=== PATIENT | female | born 1940 | race Caucasian/White ===

== ENCOUNTER 2017-08-15 13:56 | Emergency (ER) | payer MEDICARE, MEDICAID ==
[~2017-08-15] VITALS: Ht 154.9 cm; Wt 61.2 kg
[~2017-08-15 13:56] MED LIST: BENADRYL25 MG ORAL; CAPSAICIN60 G1 TP; GLUCOPHAGE500 MG PO; IBUPROFEN600 MG ORAL; LANTUS SOL100 UNIT/1 SUBQ; PREDNISONE20 MG ORAL; TRAMADOL HCL50 MG ORAL
[2017-08-15 14:32] VITALS: BP 100/50
--- NOTE | 2017-08-15 14:33 | Emergency Room Report ---
History of Present Illness General Chief Complaint: Upper Respiratory Illness Source: Patient Present Illness HPI 77-year-old female with pmhx hypertension and diabetes p/w cough for 3 days. Pt states cough is productive, with clear non bloody sputum. Denies fever chills sob. Denies runny nose or myalgias. No sick contacts or recent travel. Patient does not smoke. Patient also states that she has left-sided chest pain, mostly only when she coughs, but sometimes at rest. Denies any palpitations. States that she had a stress test performed within the last 6 months which is negative PMD is Dr. Boogie Allergies: Coded Allergies: CODEINE (Verified Allergy, Mild, "MAKES PT CRAZY", 09/20/09) Patient History Past Medical History: see triage record Past Surgical History: none Pertinent Family History: none Reviewed Nursing Documentation: PMH: Agreed, PSxH: Agreed Nursing Documentation-PMH Hx Cardiac Problems: No Hx Hypertension: No Hx Pacemaker: No Hx Asthma: No Hx COPD: No Hx Diabetes: Yes Hx Cancer: No Hx Gastrointestinal Problems: No Hx Dialysis: No Hx Neurological Problems: No Hx Cerebrovascular Accident: No Hx Seizures: No Hx Weakness: Yes Review of Systems All Other Systems: negative except mentioned in HPI Physical Exam Vital Signs Date Time Temp Pulse Resp B/P (MAP) Pulse Ox O2 Delivery O2 Flow Rate FiO2 08/15/17 14:01 98.2 73 18 108/67 95 Room Air Sp02 EP Interpretation: reviewed, normal General Appearance: normal inspection, well appearing, no apparent distress, alert, GCS 15, non-toxic Head: normocephalic, atraumatic Eyes: bilateral eye normal inspection, bilateral eye PERRL, bilateral eye EOMI ENT: normal ENT inspection, normal pharynx, normal voice, moist mucus membranes Neck: normal inspection, full range of motion, supple Respiratory: normal inspection, lungs clear, normal breath sounds, no respiratory distress, no retraction, no wheezing, speaking full sentences, chest symmetrical Cardiovascular #1: normal inspection, regular rate, rhythm, no edema, normal capillary refill Cardiovascular #2: 2+ radial (R), 2+ radial (L) Gastrointestinal: normal inspection, non tender, soft, non-distended, no guarding Musculoskeletal: normal inspection, back normal, normal range of motion, non- tender Neurologic: normal inspection, alert, oriented x3, responsive, motor strength/ tone normal, sensory intact, normal gait, speech normal Psychiatric: normal inspection, judgement/insight normal, memory normal Skin: normal inspection, normal color, no rash, warm/dry, well hydrated, normal turgor Medical Decision Making Diagnostic Impression: Primary Impression: Upper respiratory infection ER Course 77-year-old female presenting with cough and chest pain for 3 days DDX: Likely viral URI versus pneumonia versus ACS Less likely ACS given benign history and physical Plan: IV access, obtain labs including troponin, EKG, CXR Anticipate discharge as patient appears very well, not having any chest pain at this time ER course: Labs: troponin negative Patient remained chest pain free during ED stay. Vital signs normal labs unremarkable no fever chills, eating/drinking in ED, CXR neg for infiltrate DC home Disposition: Patient will be discharged to home. Strict precautions discussed with patient on when to emergently return to the ED : this includes worsening/severe chest pain, palpitations, shortness of breath, syncopal episodes, fever or chills, which may indicate severe illness. Patient verbalized understanding. Patient instructed to follow up with their PMD within the next 2 days. Please note that this Emergency Department Report was dictated using [employer]arborman[employer] technologist technology software, occasionally this can lead to erroneous entry secondary to interpretation by the dictation equipment. EKG Diagnostic Results EP Interpretation: Yes Rate: normal Rhythm: NSR ST Segments: No acute changes ASA given to patient: yes Rhythm Strip EP Interpretation: Yes Rate: 70 Rhythm: NSR, no PVCs, no ectopy Chest X-ray CXR: Ordered: Yes 1 view Indication: Cough EP interpretation: Yes Interpretation: No consolidation, no effusion, no PTX, no acute cardiopulmonary disease Impression: No acute disease Electronically signed by Donita Montano MD Laboratory Tests Test 08/15/17 14:34 White Blood Count 5.0 K/UL (4.8-10.8) Red Blood Count 4.74 M/UL (4.20-5.40) Hemoglobin 12.6 G/DL (12.0-16.0) Hematocrit 39.6 % (37.0-47.0) Mean Corpuscular Volume 83 FL (80-99) Mean Corpuscular Hemoglobin 26.5 PG (27.0-31.0) L Mean Corpuscular Hemoglobin Concent 31.7 G/DL (32.0-36.0) L Red Cell Distribution Width 13.7 % (11.6-14.8) Platelet Count 249 K/UL (150-450) Mean Platelet Volume 7.0 FL (6.5-10.1) Neutrophils (%) (Auto) 55.6 % (45.0-75.0) Lymphocytes (%) (Auto) 24.2 % (20.0-45.0) Monocytes (%) (Auto) 18.9 % (1.0-10.0) H Eosinophils (%) (Auto) 0.5 % (0.0-3.0) Basophils (%) (Auto) 0.9 % (0.0-2.0) Sodium Level 137 MMOL/L (136-145) Potassium Level 3.9 MMOL/L (3.5-5.1) Chloride Level 101 MMOL/L (98-107) Carbon Dioxide Level 29 MMOL/L (21-32) Anion Gap 7 mmol/L (5-15) Blood Urea Nitrogen 12 mg/dL (7-18) Creatinine 1.0 MG/DL (0.55-1.30) Estimate Glomerular Filtration Rate mL/min (>60) Glucose Level 180 MG/DL (74-106) H Calcium Level 8.7 MG/DL (8.5-10.1) Total Bilirubin 0.3 MG/DL (0.2-1.0) Aspartate Amino Transferase (AST) 19 U/L (15-37) Alanine Aminotransferase (ALT) 16 U/L (12-78) Alkaline Phosphatase 66 U/L (46-116) Troponin I 0.000 ng/mL (0.000-0.056) Pro-B-Type Natriuretic Peptide 348 pg/mL (0-125) H Total Protein 9.1 G/DL (6.4-8.2) H Albumin 3.6 G/DL (3.4-5.0) Globulin 5.5 g/dL Albumin/Globulin Ratio 0.7 (1.0-2.7) L Last Vital Signs Date Time Temp Pulse Resp B/P (MAP) Pulse Ox O2 Delivery O2 Flow Rate FiO2 08/15/17 14:01 98.2 73 18 108/67 95 Room Air Disposition: HOME, SELF-CARE Condition: Improved Scripts Benzonatate (Tessalon Perle) 100 Mg Capsule 100 MG ORAL THREE TIMES A DAY for 7 Days, #21 PERLE 0 Refills Prov: Donita Montano M.D. 08/15/17 Donita Montano M.D. Aug 15, 2017 14:33
[2017-08-15 15:00] LABS: BASOPHILS % (AUTO) 0.9 % (0.0-2.0); EOSINOPHILS % (AUTO) 0.5 % (0.0-3.0); LYMPHOCYTES % (AUTO) 24.2 % (20.0-45.0); MEAN CORPUSCULAR HEMOGLOBIN 26.5 PG (27.0-31.0); MEAN CORPUSCULAR HGB CONC 31.7 G/DL (32.0-36.0); MEAN CORPUSCULAR VOLUME 83 FL (80-99); MONOCYTES % (AUTO) 18.9 % (1.0-10.0); NEUTROPHILS % (AUTO) 55.6 % (45.0-75.0); PLATELET COUNT 249 K/UL (150-450); RED BLOOD COUNT 4.74 M/UL (4.20-5.40); RED CELL DISTRIBUTION WIDTH 13.7 % (11.6-14.8)
[2017-08-15 15:09] LABS: ANION GAP 7 mmol/L (5-15); CALCIUM 8.7 MG/DL (8.5-10.1); CARBON DIOXIDE 29 MMOL/L (21-32); CHLORIDE 101 MMOL/L (98-107); POTASSIUM 3.9 MMOL/L (3.5-5.1); SODIUM 137 MMOL/L (136-145)
[2017-08-15 15:21] LABS: ALANINE AMINOTRANSFERASE 16 U/L (12-78); ALBUMIN/GLOBULIN RATIO 0.7 (1.0-2.7); ASPARTATE AMINO TRANSFERASE 19 U/L (15-37); TOTAL PROTEIN 9.1 G/DL (6.4-8.2)
[2017-08-15] MEDS ORDERED: TESSALON PERLE100 M2 ORAL (15:23)
[2017-08-15 15:45] VITALS: BP 110/54
--- NOTE | 2017-08-16 08:52 | Diagnostic Imaging Report ---
Indication: SOB Technique: One view of the chest Comparison: 10/30/2015 Findings: Nodular opacity is seen at the right lung base,, one visible in retrospect previously, and 2 or more more nodular opacities are seen in the left lung base, the more cephalad of which is also evident in retrospect on the prior exam. A calcified granuloma in the right upper lung is again demonstrated. No focal airspace consolidation. There are dense mitral annular calcifications again demonstrated. The heart size is normal. Pleural spaces are clear Impression: Bilateral basilar nodular opacities, to some extent evident in retrospect on prior exam of 2015. Note also that a prior abdomen CT in 2011 demonstrated basilar opacities as well. Findings may therefore represent is inflammatory changes. Nonetheless, question with clinical findings is recommended and further evaluation with chest CT if clinically indicated. No acute cardiopulmonary process Findings discussed by phone with Dr. Estrada in the emergency room at the time of interpretation
--- NOTE | 2017-08-16 18:37 | Cardiology Report ---
APPROVED REPORT EKG Measurement Heart [id number] Normal sinus rhythm Normal ECG
== END 2017-08-15 15:55 | disposition home or self-care (01) ==
LOC: EMR 15:25
DX: J06.9 Acute upper respiratory infection, unspecified (principal); E11.9 Type 2 diabetes mellitus without complications; Z88.6 Allergy status to analgesic agent
CPT/HCPCS: 36415; 71010; 80053; 83880; 84484; 85025; 93005; 99284

== ENCOUNTER 2017-09-29 09:02 | Emergency (ER) | payer MEDICARE, MEDICAID ==
[~2017-09-29] VITALS: Ht 152.4 cm; Wt 54.4 kg
[~2017-09-29 09:02] MED LIST changes: +TESSALON PERLE100 M2 ORAL
--- NOTE | 2017-09-29 10:52 | Diagnostic Imaging Report ---
Indication: Left shoulder pain Findings: 2 views of the left humerus and 3 view left shoulder were obtained. No acute fractures, malalignment, erosions or periostitis are identified. Bones are osteopenic. There is calcium in the rotator cuff.. Soft tissues are unremarkable. Marginal spurs are noted in the glenohumeral joint and AC joint. Shoulder alignment is normal. Impression: No acute injury. Rotator cuff tendinopathy
[2017-09-29 11:24] VITALS: BP 126/68
--- NOTE | 2017-09-29 12:24 | Emergency Room Report ---
History of Present Illness General Chief Complaint: Pain Source: Patient Present Illness HPI 77-year-old female presenting with left shoulder pain. States that in the middle of the night she went to the bathroom, had it on a door. Did not fall or hit her head. No complaints of shoulder pain worse with movement. Allergies: Coded Allergies: CODEINE (Verified Allergy, Mild, "MAKES PT CRAZY", 09/20/09) Patient History Past Medical History: see triage record Past Surgical History: none Pertinent Family History: none Reviewed Nursing Documentation: PMH: Agreed, PSxH: Agreed Nursing Documentation-PMH Hx Cardiac Problems: No Hx Hypertension: No Hx Pacemaker: No Hx Asthma: No - BRONCHITIS Hx COPD: No Hx Diabetes: Yes Hx Cancer: No Hx Gastrointestinal Problems: No Hx Dialysis: No Hx Neurological Problems: No Hx Cerebrovascular Accident: No Hx Seizures: No Hx Weakness: Yes Review of Systems All Other Systems: negative except mentioned in HPI Physical Exam Vital Signs Date Time Temp Pulse Resp B/P (MAP) Pulse Ox O2 Delivery O2 Flow Rate FiO2 09/29/17 09:05 97.5 75 20 99 Room Air 09/29/17 11:24 126/68 Sp02 EP Interpretation: reviewed, normal General Appearance: alert, GCS 15, non-toxic, mild distress Head: normocephalic, atraumatic Eyes: bilateral eye normal inspection, bilateral eye PERRL, bilateral eye EOMI ENT: normal ENT inspection, normal pharynx, normal voice, moist mucus membranes Neck: normal inspection, full range of motion, supple Respiratory: normal inspection, lungs clear, normal breath sounds, no respiratory distress, no retraction, no wheezing, speaking full sentences, chest symmetrical Cardiovascular #1: normal inspection, regular rate, rhythm, no edema, normal capillary refill Cardiovascular #2: 2+ radial (R), 2+ radial (L) Gastrointestinal: normal inspection, non tender, soft, non-distended, no guarding Musculoskeletal: other - L shoulder tendenress. limited ROM 2/2 to pain however can abduct to 90 degrees. no erythema. pulses intact Neurologic: normal inspection, alert, oriented x3, responsive, motor strength/ tone normal, sensory intact, normal gait, speech normal Psychiatric: normal inspection, judgement/insight normal, memory normal Skin: normal inspection, normal color, no rash, warm/dry, well hydrated, normal turgor Medical Decision Making Diagnostic Impression: Primary Impression: Contusion ER Course 77 female with left shoulder pain after she hit it last night DDX: Contusion versus fracture Plan: Pain control an x-ray ER course: Patient has remained stable during ED stay. Feeling better X-ray negative Disposition: Patient is to be discharged to home. Prescriptions given are Tylenol Patient is instructed to follow up with their primary care doctor within 5 days. Strict return precautions discussed with patient such as fever, chills, worsening/severe pain, chest pain, SOB, nausea, vomiting, which may indicate severe illness. Patient verbalizes understanding and agrees with plan. Please note that this Emergency Department Report was dictated using [employer] specialist technology software, occasionally this can lead to erroneous entry secondary to interpretation by the dictation equipment Xray: L Shoulder Complete Indication: Pain EP Interpretation: Yes Interpretation: No dislocation, no soft tissue swelling, no fractures Impression: No acute disease Electronically signed by Donita Montano MD Xray: L Humerus 3 view Indication: Pain EP Interpretation: Yes Interpretation: No dislocation, no soft tissue swelling, no fractures Impression: No acute disease Electronically signed by Donita Montano MD Last Vital Signs Date Time Temp Pulse Resp B/P (MAP) Pulse Ox O2 Delivery O2 Flow Rate FiO2 09/29/17 11:24 97.5 76 18 126/68 98 Room Air Disposition: HOME, SELF-CARE Condition: Improved Referrals: JACINTA PALACIOS (PCP) Patient Instructions: Contusion, [id number] Donita Montano M.D. Sep 29, 2017 12:24
== END 2017-09-29 11:24 | disposition home or self-care (01) ==
LOC: EMR 10:05
DX: S40.022A Contusion of left upper arm, initial encounter (principal); W22.8XXA Striking against or struck by other objects, initial encounter; Y92.002 Bathroom of unspecified non-institutional (private) residence as the place of occurrence of the external cause; M75.82 Other shoulder lesions, left shoulder; E11.9 Type 2 diabetes mellitus without complications; Z88.5 Allergy status to narcotic agent
CPT/HCPCS: 99284

== ENCOUNTER 2017-10-12 19:40 | Inpatient (IN) | payer MEDICARE, MEDICAID ==
[~2017-10-12] VITALS: Ht 154.9 cm; Wt 56.2 kg
[2017-10-12 19:50] VITALS: BP 108/60
--- NOTE | 2017-10-12 20:28 | Emergency Room Report ---
History of Present Illness General Chief Complaint: General Complaint Source: Patient Present Illness HPI Patient is a 77-year-old female sent in by Dr Boogie after increased left sided chest pain difficulty breathing. The patient had recent thorascopic procedure. The patient was noted to have increased difficulty breathing. Chest x-ray today showed approximately 70% pneumothorax. The patient was noted to have some difficulty with breathing. She had not been vomiting. She denied any fever. Allergies: Coded Allergies: CODEINE (Verified Allergy, Mild, "MAKES PT CRAZY", 09/20/09) Patient History Past Medical History: see triage record Reviewed Nursing Documentation: PMH: Agreed, PSxH: Agreed Nursing Documentation-PMH Hx Cardiac Problems: No Hx Hypertension: No Hx Pacemaker: No Hx Asthma: No - BRONCHITIS Hx COPD: No Hx Diabetes: Yes Hx Cancer: No Hx Gastrointestinal Problems: No Hx Dialysis: No Hx Neurological Problems: No Hx Cerebrovascular Accident: No Hx Seizures: No Hx Weakness: Yes Review of Systems All Other Systems: negative except mentioned in HPI Physical Exam Vital Signs Date Time Temp Pulse Resp B/P (MAP) Pulse Ox O2 Delivery O2 Flow Rate FiO2 10/12/17 19:47 98.1 1 6 108/60 89 Room Air Sp02 EP Interpretation: reviewed, normal General Appearance: normal inspection, well appearing, no apparent distress, alert, GCS 15 Head: atraumatic ENT: normal ENT inspection, hearing grossly normal, normal voice Neck: normal inspection, full range of motion, supple, no bony tend Respiratory: normal inspection, lungs clear, no respiratory distress, no retraction, no wheezing, decreased breath sounds Cardiovascular #1: regular rate, rhythm, no edema Gastrointestinal: normal inspection, normal bowel sounds, non tender, soft, no guarding, no hernia Genitourinary: no CVA tenderness Musculoskeletal: normal inspection, back normal, normal range of motion Neurologic: normal inspection, alert, responsive, speech normal Psychiatric: normal inspection, judgement/insight normal, mood/affect normal Skin: normal inspection, normal color, no rash Procedures Additional Procedure Procedure Narrative A left-sided Thoraseal catheter was placed after sterile prep and drape. Anesthesia with 10 mL of lidocaine 1%. The prep with Betadine. Introduced of the catheter into the mid clavicular line of the left thorax. I aspirated the catheter several times. The does not appear to have good function. Subsequently the patient had a syncopal episode. Patient was noted to have spontaneous return of circulation. The Thoraseal was subsequently replaced in the mid clavicular line. Post procedure x-ray showed improved pneumothorax. Repeat x-ray showed a near full expansion Medical Decision Making Diagnostic Impression: Primary Impression: Pneumothorax on left Additional Impression: Lesion of lung ER Course Patient presented for chest pain. Differential diagnosis included but was not limited to acute coronary syndrome, pulmonary embolism, pneumonia, aortic dissection, shingles, pneumothorax, aortic dissection, esophageal rupture, pericarditis. A chest x-ray one view interpreted by me showed approximately 70 % left pneumothorax. The patient was noted to be in no respiratory distress. She started on supplemental oxygen. The patient underwent Thoraseal placement with sterile technique. Patient was noted to have bradycardic arrest for about 10 second. The patient was noted to have return spontaneous circulation after patient was placed in supine position. vital signs charted by nursing are incorrect. The patient was noted to have vomited twice afterward. Appeared to been a vasovagal episode. The patient subsequently had improvement in her mental status and heart rate. This did not require medications. A post procedure chest x-ray showed improving pneumothorax. Dr. Alessandro Boogie was contacted for inpatient management due to primary care physician. Labs Test 10/12/17 20:30 White Blood Count 10.2 K/UL (4.8-10.8) Red Blood Count 4.23 M/UL (4.20-5.40) Hemoglobin 10.9 G/DL (12.0-16.0) Hematocrit 35.0 % (37.0-47.0) Mean Corpuscular Volume 83 FL (80-99) Mean Corpuscular Hemoglobin 25.9 PG (27.0-31.0) Mean Corpuscular Hemoglobin Concent 31.3 G/DL (32.0-36.0) Red Cell Distribution Width 13.1 % (11.6-14.8) Platelet Count 319 K/UL (150-450) Mean Platelet Volume 6.0 FL (6.5-10.1) Neutrophils (%) (Auto) 57.6 % (45.0-75.0) Lymphocytes (%) (Auto) 32.8 % (20.0-45.0) Monocytes (%) (Auto) 7.9 % (1.0-10.0) Eosinophils (%) (Auto) 1.1 % (0.0-3.0) Basophils (%) (Auto) 0.6 % (0.0-2.0) Prothrombin Time 10.2 SEC (9.30-11.50) Prothromb Time International Ratio 1.0 (0.9-1.1) Activated Partial Thromboplast Time 24 SEC (23-33) Sodium Level 139 MMOL/L (136-145) Potassium Level 4.0 MMOL/L (3.5-5.1) Chloride Level 105 MMOL/L (98-107) Carbon Dioxide Level 30 MMOL/L (21-32) Anion Gap 5 mmol/L (5-15) Blood Urea Nitrogen 18 mg/dL (7-18) Creatinine 0.8 MG/DL (0.55-1.30) Estimat Glomerular Filtration Rate mL/min (>60) Glucose Level 121 MG/DL (74-106) Calcium Level 8.8 MG/DL (8.5-10.1) Total Bilirubin 0.3 MG/DL (0.2-1.0) Aspartate Amino Transf (AST/SGOT) 15 U/L (15-37) Alanine Aminotransferase (ALT/SGPT) 14 U/L (12-78) Alkaline Phosphatase 61 U/L (46-116) Total Creatine Kinase 34 U/L (26-308) Creatine Kinase MB 0.6 NG/ML (0.0-3.6) Creatine Kinase MB Relative Index 1.7 Troponin I 0.000 ng/mL (0.000-0.056) Total Protein 8.1 G/DL (6.4-8.2) Albumin 3.4 G/DL (3.4-5.0) Globulin 4.7 g/dL Albumin/Globulin Ratio 0.7 (1.0-2.7) Last Vital Signs Date Time Temp Pulse Resp B/P (MAP) Pulse Ox O2 Delivery O2 Flow Rate FiO2 10/12/17 19:47 98.1 1 6 108/60 89 Room Air Status: improved Disposition: ADMITTED INPATIENT Condition: Tashi Finch Oct 12, 2017 20:28
[2017-10-12] MEDS ORDERED: Ketamine HCl 100mg syr IV ONE (20:30)
[2017-10-12] MEDS ORDERED: Lidocaine 1% Plain 30 ml INJ ONE (20:30)
[2017-10-12] MEDS ORDERED: Morphine Sulfate 4mg/ml Inj IVP ONE (20:30)
[2017-10-12 20:46] LABS: BASOPHILS % (AUTO) 0.6 % (0.0-2.0); EOSINOPHILS % (AUTO) 1.1 % (0.0-3.0); HEMOGLOBIN 10.9 G/DL (12.0-16.0); LYMPHOCYTES % (AUTO) 32.8 % (20.0-45.0); MEAN CORPUSCULAR VOLUME 83 FL (80-99); MONOCYTES % (AUTO) 7.9 % (1.0-10.0); NEUTROPHILS % (AUTO) 57.6 % (45.0-75.0); PLATELET COUNT 319 K/UL (150-450); RED BLOOD COUNT 4.23 M/UL (4.20-5.40); RED CELL DISTRIBUTION WIDTH 13.1 % (11.6-14.8); WHITE BLOOD COUNT 10.2 K/UL (4.8-10.8)
[2017-10-12 21:00] LABS: ANION GAP 5 mmol/L (5-15); BLOOD UREA NITROGEN 18 mg/dL (7-18); CALCIUM 8.8 MG/DL (8.5-10.1); CARBON DIOXIDE 30 MMOL/L (21-32); CHLORIDE 105 MMOL/L (98-107); CREATININE 0.8 MG/DL (0.55-1.30); SODIUM 139 MMOL/L (136-145)
[2017-10-12 21:13] LABS: ALANINE AMINOTRANSFERASE 14 U/L (12-78); ALBUMIN 3.4 G/DL (3.4-5.0); ALBUMIN/GLOBULIN RATIO 0.7 (1.0-2.7); ALKALINE PHOSPHATASE 61 U/L (46-116); ASPARTATE AMINO TRANSFERASE 15 U/L (15-37); BILIRUBIN,TOTAL 0.3 MG/DL (0.2-1.0); CKMB 0.6 NG/ML (0.0-3.6); CREATINE KINASE 34 U/L (26-308)
[2017-10-12 21:50] VITALS: BP 135/69
[2017-10-12] MEDS ORDERED: MAGOX 400400 MG ORAL (23:45)
[2017-10-12] MEDS ORDERED: ATORVASTATIN CA10 MG ORAL (23:45)
[2017-10-12] MEDS ORDERED: PLAVIX75 MG ORAL (23:45)
[2017-10-12] MEDS ORDERED: LEXAPRO5 MG ORAL (23:45)
[2017-10-12] MEDS ORDERED: METFORMIN HCL500 M1 ORAL (23:45)
[2017-10-12] MEDS ORDERED: ALPHA LIPOIC A300 MG PO (23:45)
[2017-10-12 23:50] VITALS: BP 144/61
[2017-10-13 00:30] VITALS: BP 161/71
[2017-10-13 04:00] VITALS: BP 146/63
[2017-10-13] MEDS ORDERED: Zolpidem 5mg tab ORAL PRN (05:15)
[2017-10-13] MEDS: metFORMIN 500mg tab ORAL SCH ×3 (06:36→17:36)
[2017-10-13 08:00] VITALS: BP 156/76
[2017-10-13] MEDS: Escitalopram Oxalate 5mg tab ORAL SCH (08:19)
[2017-10-13] MEDS: Heparin 5000 units/ml inj SUBQ SCH ×2 (08:21→20:22)
[2017-10-13] MEDS: Magnesium Oxide 400mg tab ORAL SCH ×2 (08:27→17:42)
--- NOTE | 2017-10-13 09:11 | Diagnostic Imaging Report ---
Indication: Shortness of breath Technique: One view of the chest Comparison: 08/15/2017 Findings: Interim development large left pneumothorax, with near complete collapse of the left lung. Patient is rotated to the right, some degree of mediastinal shift is difficult to assess, although no definite evidence of such. The right lung demonstrates mild interstitial prominence, no infiltrates. No effusions demonstrated Impression: Large left pneumothorax, near complete collapse of the left lung. Equivocal as regards evidence of tension. This was apparently recognized by the ED physician, as subsequent images document placement of a chest vent catheter Mild nonspecific right lung interstitial prominence
--- NOTE | 2017-10-13 09:20 | Diagnostic Imaging Report ---
Indication: Shortness of breath, pneumothorax, status post thoracic vent placement Technique: One view of the chest Comparison: 1 1/2 hours earlier Findings: Interim placement of a thoracic vent at the level of the left first intercostal space. There is evidence of partial reexpansion of the left lung, predominantly the lower lobe, but there is still residual pneumothorax of approximately 50%. Dense parenchymal opacities are seen within the incompletely expanded left lung. Allowing for differences in rotation mediastinum appears equivocally slightly less shifted and the interstitial markings in the right lung appears slightly less compressed Impression: Improved but not completely resolved left pneumothorax, still up to 50% residual, post left chest vent catheter placement Possibly improved mediastinal shift
--- NOTE | 2017-10-13 09:26 | Diagnostic Imaging Report ---
Indication: Shortness of breath, pneumothorax, status post thoracic vent placement Technique: One view of the chest Comparison: One hour earlier Findings: Interim complete reexpansion of the left lung. Tip of the thoracic vent catheter is at the left lung apex in good position. Marked interstitial septal thickening and bronchial wall thickening is seen in the left mid and lower lung. There may be some airspace opacification as well Chronic appearing interstitial prominence is again demonstrated in the right lung, with less striking central bronchial wall thickening. There are degenerative changes of the thoracic spine Impression: Interim complete re-expansion of the left lung. Thoracic chest vent catheter in good position Left lung interstitial and airspace opacities, acuity indeterminate. Less striking mild right lung interstitial prominence and central bronchial wall thickening, nonspecific
--- NOTE | 2017-10-13 10:42 | Diagnostic Imaging Report ---
Indication: Shortness of breath Technique: One view of the chest Comparison: 10/12/2017 Findings: Left-sided chest vent catheter remains. No pneumothorax. There is interim partial clearing of previously demonstrated left lung opacities. There is central bronchial wall thickening and perihilar interstitial prominence bilaterally. There is a persistent 1.5 cm diameter nodular opacity in the left midlung Impression: Improved aeration of the left lung, over one day. No evidence of residual pneumothorax Nonspecific left midlung nodular opacity. Recommend follow-up chest radiographs, consideration for CT should lesion fails to resolve
[2017-10-13] MEDS: Albuterol ud Inhalation HHN SCH ×4 (11:10→23:45)
[2017-10-13 12:00] VITALS: BP 112/57
[2017-10-13] MEDS: NovoLOG Insulin Flexpen SUBQ SCH ×3 (12:03→20:42)
--- NOTE | 2017-10-13 13:46 | Consultation ---
History of Present Illness General Date patient seen: Oct 13, 2017 Chief Complaint: General Complaint Reason for Consultation: Pneumothorax Present Illness HPI 77 year old female presented to ED c/o chest pain and was found to have a near complete collapse of left lung/pneumothorax. Patient recently noted to have lung nodules and as part of work up had scheduled bronchoscopy yesterday at [facility]. Post procedure she went home but developed mild chest pain that worsened through the night. She called Dr. Boogie who advised her to come to ED where she had a chest x-ray that identified large left pneumothorax. A valve catheter was placed successfully. Currently states she feels better and is comfortable. Surgery called to evaluate for pneumothorax and tube thoracostomy management. Currently valve functional and positioned well. CXR reviewed since placement and improved. states that she only has some mild left shoulder discomfort now. no n/v/f/c. no SOB. CP resolved. Allergies: Coded Allergies: CODEINE (Verified Allergy, Mild, "MAKES PT CRAZY", 09/20/09) Medication History Scheduled Alpha Lipoic Acid (Alpha Lipoic Acid), 600 MG PO DAILY, (Reported) Atorvastatin Calcium* (Lipitor*), 10 MG ORAL BEDTIME, (Reported) Benzonatate (Tessalon Perle), 100 MG ORAL THREE TIMES A DAY Capsaicin (Capsaicin), 60 GM TP TID Clopidogrel Bisulfate* (Plavix*), 75 MG ORAL DAILY, (Reported) Escitalopram Oxalate (Lexapro), 5 MG ORAL DAILY, (Reported) Ibuprofen* (Motrin*), 600 MG ORAL THREE TIMES A DAY Insulin Glargine (Lantus), 20 UNITS SUBQ QHS, (Reported) Magnesium Oxide (Magox 400), 400 MG ORAL BID, (Reported) Metformin Hcl* (Glucophage*), 500 MG PO DAILY, (Reported) Prednisone* (Prednisone*), 40 MG ORAL DAILY Scheduled PRN Diphenhydramine Hcl* (Benadryl*), 25 MG ORAL Q6H PRN for Itching Ibuprofen* (Motrin*), 600 MG ORAL Q12HR PRN for For Pain Tramadol Hcl* (Ultram*), 50 MG ORAL Q6H PRN for For Pain Miscellaneous Medications Metformin Hcl* (Metformin Hcl*), 500 MG ORAL, (Reported) Patient History History Provided By: Patient, Medical Record, PMD Healthcare decision maker Resuscitation status Advanced Directive on File Past Medical/Surgical History Past Medical/Surgical History: (1) Muscle spasm (2) Allergic reaction (3) Itch of eye, right (4) Chronic pain (5) Degenerative arthritis of lumbar spine (6) Head injury (7) Left shoulder strain (8) Contusion (9) Lesion of lung (10) Pneumothorax on left Review of Systems Constitutional: Denies: no symptoms, see HPI, chills, sweats, fever, malaise, weakness, other Eye: Denies: no symptoms, see HPI, eye pain, blurred vision, tearing, double vision, nose pain, nose congestion, acuity changes, discharge, other ENT: Denies: no symptoms, see HPI, ear pain, ear discharge, nose pain, nose congestion, throat pain, throat swelling, mouth pain, hearing loss, nasal discharge, other Respiratory: Denies: no symptoms, see HPI, cough, orthopnea, shortness of breath, stridor, wheezing, GÓMEZ, sputum, other Cardiovascular: Reports: chest pain Gastrointestinal: Denies: no symptoms, see HPI, abdominal pain, constipation, diarrhea, nausea, vomiting, melena, hematemesis, other Genitourinary: Denies: no symptoms, see HPI, discharge, dysuria, frequency, hematuria, pain, retention, incontinence, urgency, vag bleed/dc, other Musculoskeletal: Denies: no symptoms, see HPI, back pain, gout, joint pain, joint swelling, muscle pain, muscle stiffness, other Skin: Denies: no symptoms, see HPI, rash, change in color, change in hair/nails , dryness, lesions, other Psychiatric: Denies: no symptoms, see HPI, prior hx, anxiety, depressed feelings, emotional problems, SI, HI, hallucinations, other Neurological: Denies: no symptoms, see HPI, headache, numbness, paresthesia, seizure, tingling, tremors, focal weakness, syncope, dizziness, other Endocrine: Denies: no symptoms, see HPI, excessive sweating, flushing, intolerance to temperature, increased thirst, increased urine, unexplained weight loss, other Hematologic/Lymphatic: Denies: no symptoms, see HPI, anemia, blood clots, easy bleeding, easy bruising, swollen glands, diathesis, other Physical Exam General Appearance: WD/WN, no apparent distress, alert Lines, tubes and drains: peripheral HEENT: normocephalic, atraumatic, mucous membranes moist, PERRL Neck: supple, normal inspection Respiratory/Chest: lungs clear, normal breath sounds, no respiratory distress, no accessory muscle use, chest tube Cardiovascular/Chest: normal peripheral pulses, normal rate, regular rhythm Abdomen: normal bowel sounds, non tender, soft, no organomegaly, no mass Extremities: normal range of motion, non-tender, normal inspection Skin Exam: normal pigmentation, warm/dry Neurologic: alert, oriented x 3, responsive Last 24 Hour Vital Signs Date Time Temp Pulse Resp B/P (MAP) Pulse Ox O2 Delivery O2 Flow Rate FiO2 10/13/17 12:00 97.7 70 20 112/57 98 Nasal Cannula 2.0 10/13/17 12:00 68 10/13/17 11:20 66 20 100 Nasal Cannula 2.0 28 10/13/17 11:20 28 10/13/17 11:11 62 22 100 Nasal Cannula 2.0 28 10/13/17 10:23 68 22 Nasal Cannula 2.0 28 10/13/17 08:00 97.0 59 20 156/76 100 10/13/17 08:00 57 10/13/17 04:00 61 10/13/17 04:00 97.6 61 16 146/63 100 10/13/17 00:30 97.6 62 14 161/71 98 10/13/17 00:25 98.0 59 20 140/69 93 Room Air 10/13/17 00:00 64 10/12/17 23:50 98.0 57 18 144/61 92 Room Air 10/12/17 21:50 98.1 59 20 135/69 93 Room Air 10/12/17 21:08 98.0 10/12/17 19:50 98.1 55 20 108/60 95 Room Air 10/12/17 19:47 98.1 61 16 108/60 89 Room Air Intake and Output 10/12/17 10/13/17 19:00 07:00 Intake Total 100 ml Balance 100 ml Intake Oral 100 ml # Voids 2 Laboratory Tests Test 10/12/17 20:30 White Blood Count 10.2 K/UL (4.8-10.8) Red Blood Count 4.23 M/UL (4.20-5.40) Hemoglobin 10.9 G/DL (12.0-16.0) L Hematocrit 35.0 % (37.0-47.0) L Mean Corpuscular Volume 83 FL (80-99) Mean Corpuscular Hemoglobin 25.9 PG (27.0-31.0) L Mean Corpuscular Hemoglobin Concent 31.3 G/DL (32.0-36.0) L Red Cell Distribution Width 13.1 % (11.6-14.8) Platelet Count 319 K/UL (150-450) Mean Platelet Volume 6.0 FL (6.5-10.1) L Neutrophils (%) (Auto) 57.6 % (45.0-75.0) Lymphocytes (%) (Auto) 32.8 % (20.0-45.0) Monocytes (%) (Auto) 7.9 % (1.0-10.0) Eosinophils (%) (Auto) 1.1 % (0.0-3.0) Basophils (%) (Auto) 0.6 % (0.0-2.0) Prothrombin Time 10.2 SEC (9.30-11.50) Prothromb Time International Ratio 1.0 (0.9-1.1) Activated Partial Thromboplast Time 24 SEC (23-33) Sodium Level 139 MMOL/L (136-145) Potassium Level 4.0 MMOL/L (3.5-5.1) Chloride Level 105 MMOL/L (98-107) Carbon Dioxide Level 30 MMOL/L (21-32) Anion Gap 5 mmol/L (5-15) Blood Urea Nitrogen 18 mg/dL (7-18) Creatinine 0.8 MG/DL (0.55-1.30) Estimat Glomerular Filtration Rate mL/min (>60) Glucose Level 121 MG/DL (74-106) H Calcium Level 8.8 MG/DL (8.5-10.1) Total Bilirubin 0.3 MG/DL (0.2-1.0) Aspartate Amino Transf (AST/SGOT) 15 U/L (15-37) Alanine Aminotransferase (ALT/SGPT) 14 U/L (12-78) Alkaline Phosphatase 61 U/L (46-116) Total Creatine Kinase 34 U/L (26-308) Creatine Kinase MB 0.6 NG/ML (0.0-3.6) Creatine Kinase MB Relative Index 1.7 Troponin I 0.000 ng/mL (0.000-0.056) Total Protein 8.1 G/DL (6.4-8.2) Albumin 3.4 G/DL (3.4-5.0) Globulin 4.7 g/dL Albumin/Globulin Ratio 0.7 (1.0-2.7) L Height (Feet): 5 Height (Inches): 1.00 Weight (Pounds): 124 Medications Current Medications Medications (Trade) Dose Ordered Sig/Mariela Route PRN Reason Start Time Stop Time Status Last Admin Dose Admin Acetaminophen (Tylenol) 650 mg Q4H PRN ORAL Mild Pain/Temp > 100.5 10/13/17 05:15 11/12/17 05:14 Al Hydroxide/Mg Hydroxide (Mylanta) 30 ml Q4H PRN ORAL Abdominal cramps 10/13/17 05:15 11/12/17 05:14 Albuterol Sulfate (Proventil) 2.5 mg Q4HRT HHN 10/13/17 11:00 10/18/17 10:59 10/13/17 11:10 Atorvastatin Calcium (Lipitor) 10 mg BEDTIME ORAL 10/13/17 21:00 11/12/17 20:59 Clopidogrel Bisulfate (Plavix) 75 mg DAILY ORAL 10/13/17 09:00 11/12/17 08:59 10/13/17 08:19 Dextrose (Dextrose 50%) STAT PRN IV Hypoglycemia 10/13/17 10:15 11/12/17 10:14 Escitalopram Oxalate (Lexapro) 5 mg DAILY ORAL 10/13/17 09:00 11/12/17 08:59 10/13/17 08:19 Heparin Sodium (Porcine) (Heparin 5000 units/ml) 5,000 units Q12HR SUBQ 10/13/17 09:00 11/12/17 08:59 10/13/17 08:21 Insulin Aspart (NovoLOG) BEFORE MEALS AND HS SUBQ 10/13/17 11:30 11/12/17 11:29 10/13/17 12:03 Magnesium Oxide (Mag-Ox 400mg) 400 mg BID ORAL 10/13/17 09:00 11/12/17 08:59 10/13/17 08:27 Metformin HCl (Glucophage) 500 mg TIAC ORAL 10/13/17 06:30 11/12/17 06:29 10/13/17 12:01 Non-Formulary Medication (Non-Formulary Med) 1 ea DAILY ORAL 10/13/17 09:00 11/12/17 08:59 UNV Non-Formulary Medication (Non-Formulary Med) 25 ea DAILY ORAL 10/13/17 09:00 11/12/17 08:59 UNV Ondansetron HCl (Zofran) 4 mg Q6H PRN IVP Nausea & Vomiting 10/13/17 09:15 11/12/17 09:14 Pantoprazole (Protonix) 40 mg DAILY ORAL 10/13/17 09:00 11/12/17 08:59 10/13/17 08:19 Zolpidem Tartrate (Ambien) 5 mg HSPRN PRN ORAL Insomnia 10/13/17 05:15 10/20/17 05:14 Assessment/Plan Problem List: (1) Pneumothorax on left Assessment & Plan: 77F with iatrogenic left ptx after bronchoscopy yesterday. s/p left tube thoracostomy with valve vent. cxr improved and symptoms resolved. no leak noted. -will need to leave tube in for 2-3 days to ensure resolution of ptx and that area of leak healed. -daily cxr -will monitor and manage tube. -okay for diet -Rx as written. -ambulate and oob thank you for this consult. will follow with recs. ICD Codes: J93.9 - Pneumothorax, unspecified SNOMED: 368471314 Status: stable Hossein Fleming Oct 13, 2017 13:46
[2017-10-13 16:00] VITALS: BP 142/66
--- NOTE | 2017-10-13 18:55 | Cardiology Report ---
APPROVED REPORT EKG Measurement Heart [id number] Normal sinus rhythm Normal ECG
[2017-10-13 20:00] VITALS: BP 121/53
[2017-10-14] VITALS: BP 99/50
[2017-10-14] MEDS: Albuterol ud Inhalation HHN SCH ×6 (03:01→23:00)
[2017-10-14 04:00] VITALS: BP 125/69
[2017-10-14] MEDS: NovoLOG Insulin Flexpen SUBQ SCH ×4 (06:30→21:00)
[2017-10-14] MEDS: metFORMIN 500mg tab ORAL SCH ×3 (07:38→16:42)
--- NOTE | 2017-10-14 07:53 | Pulmonology Progress Note ---
Assessment/Plan Assessment/Plan pneumothorax s/p bronchoscopy pulmonary nodule Asthma PLAN theravent dc per general surgery continue same oxygen maintain home meds impression, plan, and exam edited and reviewed in detail care discussed with RN Subjective Allergies: Coded Allergies: CODEINE (Verified Allergy, Mild, "MAKES PT CRAZY", 09/20/09) Subjective stable on oxygen minimal pain Objective Last 24 Hour Vital Signs Date Time Temp Pulse Resp B/P (MAP) Pulse Ox O2 Delivery O2 Flow Rate FiO2 10/14/17 04:00 97.5 79 22 125/69 98 Nasal Cannula 2.0 10/14/17 04:00 69 10/14/17 03:10 65 16 98 Room Air 21 10/14/17 03:01 67 18 94 Room Air 21 10/14/17 00:00 72 10/14/17 00:00 98.6 73 18 99/50 95 Room Air 10/13/17 23:52 65 16 99 Room Air 21 10/13/17 23:44 66 18 92 Room Air 21 10/13/17 20:00 65 10/13/17 20:00 99.2 66 18 121/53 97 Room Air 10/13/17 19:42 64 16 99 Room Air 21 10/13/17 19:33 65 18 94 Room Air 21 10/13/17 16:00 63 10/13/17 16:00 97.9 63 18 142/66 98 Room Air 10/13/17 14:46 Nasal Cannula 2.0 28 10/13/17 14:46 Nasal Cannula 2.0 28 10/13/17 12:00 97.7 70 20 112/57 98 Nasal Cannula 2.0 10/13/17 12:00 68 10/13/17 11:20 66 20 100 Nasal Cannula 2.0 28 10/13/17 11:20 28 10/13/17 11:11 62 22 100 Nasal Cannula 2.0 28 10/13/17 10:23 68 22 Nasal Cannula 2.0 28 10/13/17 08:00 97.0 59 20 156/76 100 10/13/17 08:00 57 Intake and Output 10/13/17 10/14/17 19:00 07:00 Intake Total 540 ml 100 ml Balance 540 ml 100 ml Intake Oral 540 ml 100 ml # Voids 4 Objective WDWN NAD clear breath sounds bilaterally without rhonchi or wheeze theravent [id number] without MRG NABS nontender no HSM no CCE nonfocal Current Medications Medications (Trade) Dose Ordered Sig/Mariela Route PRN Reason Start Time Stop Time Status Last Admin Dose Admin Acetaminophen (Tylenol) 650 mg Q4H PRN ORAL Mild Pain/Temp > 100.5 10/13/17 05:15 11/12/17 05:14 10/13/17 22:13 Al Hydroxide/Mg Hydroxide (Mylanta) 30 ml Q4H PRN ORAL Abdominal cramps 10/13/17 05:15 11/12/17 05:14 Albuterol Sulfate (Proventil) 2.5 mg Q4HRT HHN 10/13/17 11:00 10/18/17 10:59 10/14/17 03:01 Atorvastatin Calcium (Lipitor) 10 mg BEDTIME ORAL 10/13/17 21:00 11/12/17 20:59 10/13/17 20:20 Clopidogrel Bisulfate (Plavix) 75 mg DAILY ORAL 10/13/17 09:00 11/12/17 08:59 10/13/17 08:19 Dextrose (Dextrose 50%) STAT PRN IV Hypoglycemia 10/13/17 10:15 11/12/17 10:14 Escitalopram Oxalate (Lexapro) 5 mg DAILY ORAL 10/13/17 09:00 11/12/17 08:59 10/13/17 08:19 Heparin Sodium (Porcine) (Heparin 5000 units/ml) 5,000 units Q12HR SUBQ 10/13/17 09:00 11/12/17 08:59 10/13/17 20:22 Insulin Aspart (NovoLOG) BEFORE MEALS AND HS SUBQ 10/13/17 11:30 11/12/17 11:29 10/13/17 20:42 Magnesium Oxide (Mag-Ox 400mg) 400 mg BID ORAL 10/13/17 09:00 11/12/17 08:59 10/13/17 17:42 Metformin HCl (Glucophage) 500 mg TIAC ORAL 10/13/17 06:30 11/12/17 06:29 10/14/17 07:38 Non-Formulary Medication (Non-Formulary Med) 1 ea DAILY ORAL 10/13/17 09:00 11/12/17 08:59 UNV Non-Formulary Medication (Non-Formulary Med) 25 ea DAILY ORAL 10/13/17 09:00 11/12/17 08:59 UNV Ondansetron HCl (Zofran) 4 mg Q6H PRN IVP Nausea & Vomiting 10/13/17 09:15 11/12/17 09:14 10/13/17 20:45 Pantoprazole (Protonix) 40 mg DAILY ORAL 10/13/17 09:00 11/12/17 08:59 10/13/17 08:19 Zolpidem Tartrate (Ambien) 5 mg HSPRN PRN ORAL Insomnia 10/13/17 05:15 10/20/17 05:14 JACINTA PALACIOS Oct 14, 2017 07:53
[2017-10-14 08:00] VITALS: BP 149/62
[2017-10-14 08:43] LABS: BASOPHILS % (AUTO) 0.4 % (0.0-2.0); EOSINOPHILS % (AUTO) 0.7 % (0.0-3.0); HEMATOCRIT 36.6 % (37.0-47.0); HEMOGLOBIN 11.6 G/DL (12.0-16.0); LYMPHOCYTES % (AUTO) 29.7 % (20.0-45.0); MEAN CORPUSCULAR VOLUME 83 FL (80-99); MONOCYTES % (AUTO) 8.1 % (1.0-10.0); NEUTROPHILS % (AUTO) 61.1 % (45.0-75.0); PLATELET COUNT 271 K/UL (150-450); RED BLOOD COUNT 4.43 M/UL (4.20-5.40); WHITE BLOOD COUNT 8.5 K/UL (4.8-10.8)
[2017-10-14] MEDS: Escitalopram Oxalate 5mg tab ORAL SCH (08:53)
[2017-10-14] MEDS: Magnesium Oxide 400mg tab ORAL SCH ×2 (08:54→17:38)
[2017-10-14 08:55] LABS: ALANINE AMINOTRANSFERASE 12 U/L (12-78); ALBUMIN 3.1 G/DL (3.4-5.0); ALBUMIN/GLOBULIN RATIO 0.7 (1.0-2.7); ALKALINE PHOSPHATASE 53 U/L (46-116); ANION GAP 7 mmol/L (5-15); ASPARTATE AMINO TRANSFERASE 14 U/L (15-37); BILIRUBIN,TOTAL 0.3 MG/DL (0.2-1.0); BLOOD UREA NITROGEN 16 mg/dL (7-18); CARBON DIOXIDE 30 MMOL/L (21-32); CHLORIDE 102 MMOL/L (98-107); CREATININE 0.8 MG/DL (0.55-1.30); POTASSIUM 3.8 MMOL/L (3.5-5.1); SODIUM 139 MMOL/L (136-145)
[2017-10-14] MEDS: Heparin 5000 units/ml inj SUBQ SCH ×2 (08:59→20:32)
--- NOTE | 2017-10-14 09:16 | General Progress Note ---
Assessment/Plan Problem List: (1) Lesion of lung ICD Codes: R91.1 - Solitary pulmonary nodule SNOMED: 067263992 (2) Chronic pain ICD Codes: G89.29 - Other chronic pain SNOMED: 06933739 (3) Degenerative arthritis of lumbar spine ICD Codes: M47.816 - Spondylosis without myelopathy or radiculopathy, lumbar region SNOMED: 182876935 (4) Left shoulder strain ICD Codes: S46.912A - Strain of unspecified muscle, fascia and tendon at shoulder and upper arm level, left arm, initial encounter SNOMED: 053246991 (5) Pneumothorax on left ICD Codes: J93.9 - Pneumothorax, unspecified SNOMED: 837734155 Status: stable, progressing Assessment/Plan CT per pulm pain rx o2 prn mobilize Subjective ROS Limited/Unobtainable: No Constitutional: Reports: weakness HEENT: Reports: no symptoms Cardiovascular: Reports: chest pain Respiratory: Reports: no symptoms Gastrointestinal/Abdominal: Reports: no symptoms Genitourinary: Reports: no symptoms Neurologic/Psychiatric: Reports: no symptoms Endocrine: Reports: no symptoms Hematologic/Lymphatic: Reports: no symptoms Allergies: Coded Allergies: CODEINE (Verified Allergy, Mild, "MAKES PT CRAZY", 09/20/09) All Systems: reviewed and negative except above Subjective minimal pain at CT site. no sob. walking to the bathroom. Objective Last 24 Hour Vital Signs Date Time Temp Pulse Resp B/P (MAP) Pulse Ox O2 Delivery O2 Flow Rate FiO2 10/14/17 07:58 86 20 98 Room Air 21 10/14/17 07:53 84 20 97 Room Air 10/14/17 04:00 97.5 79 22 125/69 98 Nasal Cannula 2.0 10/14/17 04:00 69 10/14/17 03:10 65 16 98 Room Air 21 10/14/17 03:01 67 18 94 Room Air 10/14/17 00:00 72 10/14/17 00:00 98.6 73 18 99/50 95 Room Air 10/13/17 23:52 65 16 99 Room Air 21 10/13/17 23:44 66 18 92 Room Air 21 10/13/17 20:00 65 10/13/17 20:00 99.2 66 18 121/53 97 Room Air 10/13/17 19:42 64 16 99 Room Air 21 10/13/17 19:33 65 18 94 Room Air 21 10/13/17 16:00 63 10/13/17 16:00 97.9 63 18 142/66 98 Room Air 10/13/17 14:46 Nasal Cannula 2.0 28 10/13/17 14:46 Nasal Cannula 2.0 28 10/13/17 12:00 97.7 70 20 112/57 98 Nasal Cannula 2.0 10/13/17 12:00 68 10/13/17 11:20 66 20 100 Nasal Cannula 2.0 28 10/13/17 11:20 28 10/13/17 11:11 62 22 100 Nasal Cannula 2.0 28 10/13/17 10:23 68 22 Nasal Cannula 2.0 28 Intake and Output 10/13/17 10/14/17 19:00 07:00 Intake Total 540 ml 100 ml Balance 540 ml 100 ml Intake Oral 540 ml 100 ml # Voids 4 Laboratory Tests 10/14/17 06:40: White Blood Count 8.5, Red Blood Count 4.43, Hemoglobin 11.6L, Hematocrit 36.6L , Mean Corpuscular Volume 83, Mean Corpuscular Hemoglobin 26.2L, Mean Corpuscular Hemoglobin Concent 31.6L, Red Cell Distribution Width 13.0, Platelet Count 271, Mean Platelet Volume 7.1, Neutrophils (%) (Auto) 61.1, Lymphocytes (%) (Auto) 29.7, Monocytes (%) (Auto) 8.1, Eosinophils (%) (Auto) 0.7, Basophils (%) (Auto) 0.4, Sodium Level 139, Potassium Level 3.8, Chloride Level 102, Carbon Dioxide Level 30, Anion Gap 7, Blood Urea Nitrogen 16, Creatinine 0.8, Estimat Glomerular Filtration Rate , Glucose Level 106, Calcium Level 9.0, Total Bilirubin 0.3, Aspartate Amino Transf (AST/SGOT) 14L, Alanine Aminotransferase (ALT/SGPT) 12, Alkaline Phosphatase 53, Total Protein 7.8, Albumin 3.1L, Globulin 4.7, Albumin/Globulin Ratio 0.7L Height (Feet): 5 Height (Inches): 1.00 Weight (Pounds): 124 General Appearance: WD/WN, alert Neck: supple Cardiovascular: normal rate Respiratory/Chest: chest wall non-tender, lungs clear, normal breath sounds Abdomen: normal bowel sounds, non tender, soft, no organomegaly Edema: no edema noted Arm (L), no edema noted Arm (R), no edema noted Leg (L), no edema noted Leg (R), no edema noted Pedal (L), no edema noted Pedal (R), no edema noted Generalized Neurologic: radiation technician II-XII grossly normal, no motor/sensory deficits, oriented x 3 , responsive JESSICA COATS Oct 14, 2017 09:16
--- NOTE | 2017-10-14 11:01 | Diagnostic Imaging Report ---
Indication: Reason For Exam: COUGH Technique: XRAY Chest 1v Comparison: 10/13/2017 Findings: Left-sided smallbore chest tube/thoracic vent remains in place. There is no definite pneumothorax. Nodular density in the left midlung less apparent compared to prior exam.. Likely calcified granuloma in the right upper lung. No new focal consolidation. No pleural effusion. Impression: Left small bore chest tube/thoracic vent remains in place. No definite pneumothorax. Nodular density in the left midlung less apparent compared to the prior exam. Follow-up exam recommended.
[2017-10-14 12:00] VITALS: BP 140/62
--- NOTE | 2017-10-14 15:30 | History and Physical Report ---
DATE OF ADMISSION: 10/12/2017 CHIEF COMPLAINT: Pneumothorax. HISTORY OF PRESENT ILLNESS: The patient is a pleasant 77-year-old female. 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 She was diagnosed with a pneumothorax and was sent to the emergency room. On evaluation there, a catheter was placed. The patient apparently had a vasovagal episode during the procedure and had a bradycardic episode for 10 seconds. She is now improved, although she complains of some nausea. She has no chest pain or shortness of breath. PAST MEDICAL HISTORY: As above. PAST SURGICAL HISTORY: Includes back surgery. CURRENT MEDICATIONS: Reconciled and reviewed. ALLERGIES: None. FAMILY HISTORY: None. SOCIAL HISTORY: Negative for tobacco, ethanol, or drugs. REVIEW OF SYSTEMS: GENERAL: No fever or chills. HEENT: No headaches or visual changes. CARDIOPULMONARY: No chest pain. Positive shortness of breath. No cough. GASTROINTESTINAL: No nausea or vomiting. GENITOURINARY: No urgency or frequency. MUSCULOSKELETAL: No joint pain or swelling. NEUROLOGIC: No history of seizures. PHYSICAL EXAMINATION: VITAL SIGNS: Temperature 98, pulse 61, respirations 16, and blood pressure 146/63. The patient is saturating 100% on two liters nasal cannula. GENERAL: The patient is a well-looking female, in no apparent distress. HEART: Regular rate and rhythm. LUNGS: Clear. ABDOMEN: Soft, nontender, and nondistended. EXTREMITIES: Without clubbing, cyanosis, or edema. LABORATORY DATA: White count was 10, hemoglobin 10, hematocrit 35, and platelets 319,000. Sodium 139, potassium was 4, and creatinine was 0.8. Troponin was negative. ASSESSMENT: This is a pleasant female with pneumothorax, status post chest tube. She has a history of hypertension and diabetes. PLAN: Continue chest tube, pulmonary evaluation, and supplemental oxygen. Continue outpatient diabetic regimen. Monitor blood sugars. Dev La M.D. DR: AMBREEN JOB#: [id number] CC:
--- NOTE | 2017-10-14 15:52 | General Surgery Progress Note ---
General Surgery-Progress Note Subjective Symptoms: improved Additional Comments doing okay. left shoulder discomfort likely irritation from tube. no n/v/f/c. no sob. cxr okay. Objective Last 24 Hour Vital Signs Date Time Temp Pulse Resp B/P (MAP) Pulse Ox O2 Delivery O2 Flow Rate FiO2 10/14/17 14:57 67 20 99 Room Air 21 10/14/17 14:50 65 20 99 Room Air 21 10/14/17 12:03 65 20 99 Room Air 21 10/14/17 12:00 97.9 66 19 140/62 97 Room Air 10/14/17 12:00 66 10/14/17 11:55 66 20 97 Room Air 10/14/17 08:00 96.8 71 19 149/62 98 Room Air 10/14/17 08:00 73 10/14/17 07:58 86 20 98 Room Air 10/14/17 07:53 84 20 97 Room Air 10/14/17 04:00 97.5 79 22 125/69 98 Nasal Cannula 2.0 10/14/17 04:00 69 10/14/17 03:10 65 16 98 Room Air 21 10/14/17 03:01 67 18 94 Room Air 10/14/17 00:00 72 10/14/17 00:00 98.6 73 18 99/50 95 Room Air 10/13/17 23:52 65 16 99 Room Air 10/13/17 23:44 66 18 92 Room Air 21 10/13/17 20:00 65 10/13/17 20:00 99.2 66 18 121/53 97 Room Air 10/13/17 19:42 64 16 99 Room Air 10/13/17 19:33 65 18 94 Room Air 21 10/13/17 16:00 63 10/13/17 16:00 97.9 63 18 142/66 98 Room Air I&O Intake and Output 10/13/17 10/14/17 19:00 07:00 Intake Total 540 ml 100 ml Balance 540 ml 100 ml Intake Oral 540 ml 100 ml # Voids 4 Drains: other - left tube vent Cardiovascular: RSR Respiratory: clear Abdomen: soft, flat, non-tender Extremities: no edema, no tenderness Laboratory Tests Test 10/14/17 06:40 White Blood Count 8.5 K/UL (4.8-10.8) Red Blood Count 4.43 M/UL (4.20-5.40) Hemoglobin 11.6 G/DL (12.0-16.0) L Hematocrit 36.6 % (37.0-47.0) L Mean Corpuscular Volume 83 FL (80-99) Mean Corpuscular Hemoglobin 26.2 PG (27.0-31.0) L Mean Corpuscular Hemoglobin Concent 31.6 G/DL (32.0-36.0) L Red Cell Distribution Width 13.0 % (11.6-14.8) Platelet Count 271 K/UL (150-450) Mean Platelet Volume 7.1 FL (6.5-10.1) Neutrophils (%) (Auto) 61.1 % (45.0-75.0) Lymphocytes (%) (Auto) 29.7 % (20.0-45.0) Monocytes (%) (Auto) 8.1 % (1.0-10.0) Eosinophils (%) (Auto) 0.7 % (0.0-3.0) Basophils (%) (Auto) 0.4 % (0.0-2.0) Sodium Level 139 MMOL/L (136-145) Potassium Level 3.8 MMOL/L (3.5-5.1) Chloride Level 102 MMOL/L (98-107) Carbon Dioxide Level 30 MMOL/L (21-32) Anion Gap 7 mmol/L (5-15) Blood Urea Nitrogen 16 mg/dL (7-18) Creatinine 0.8 MG/DL (0.55-1.30) Estimat Glomerular Filtration Rate mL/min (>60) Glucose Level 106 MG/DL (74-106) Calcium Level 9.0 MG/DL (8.5-10.1) Total Bilirubin 0.3 MG/DL (0.2-1.0) Aspartate Amino Transf (AST/SGOT) 14 U/L (15-37) L Alanine Aminotransferase (ALT/SGPT) 12 U/L (12-78) Alkaline Phosphatase 53 U/L (46-116) Total Protein 7.8 G/DL (6.4-8.2) Albumin 3.1 G/DL (3.4-5.0) L Globulin 4.7 g/dL Albumin/Globulin Ratio 0.7 (1.0-2.7) L Plan Problems: (1) Pneumothorax on left Assessment & Plan: 77F with iatrogenic left ptx after bronchoscopy yesterday. s/p left tube thoracostomy with valve vent. cxr improved and symptoms resolved. no leak noted. -tube removed without complication at bedside. -CXR in 6 hrs and in AM -okay for diet -Rx as written. -ambulate and oob thank you for this consult. will follow with recs. Hossein Fleming Oct 14, 2017 15:52
[2017-10-14 16:00] VITALS: BP 134/68
[2017-10-14 20:00] VITALS: BP 122/55
[2017-10-15] VITALS: BP 109/49
[2017-10-15] MEDS: Albuterol ud Inhalation HHN SCH ×4 (03:00→14:56)
[2017-10-15 04:00] VITALS: BP 116/58
[2017-10-15] MEDS: metFORMIN 500mg tab ORAL SCH ×3 (05:34→17:54)
[2017-10-15] MEDS: NovoLOG Insulin Flexpen SUBQ SCH ×3 (06:30→16:30)
[2017-10-15 08:00] VITALS: BP 104/57
--- NOTE | 2017-10-15 08:23 | Pulmonology Progress Note ---
Assessment/Plan Assessment/Plan pneumothorax s/p bronchoscopy pulmonary nodule Asthma PLAN theravent out check cxr dc today dc per general surgery continue same oxygen maintain home meds home health follow up biopsy follow up impression, plan, and exam edited and reviewed in detail care discussed with RN Subjective Allergies: Coded Allergies: CODEINE (Verified Allergy, Mild, "MAKES PT CRAZY", 09/20/09) Subjective theravent out on oxygen minimal pain Objective Last 24 Hour Vital Signs Date Time Temp Pulse Resp B/P (MAP) Pulse Ox O2 Delivery O2 Flow Rate FiO2 10/15/17 07:31 65 16 98 Room Air 21 10/15/17 07:26 66 18 96 Room Air 21 10/15/17 04:00 71 10/15/17 04:00 97.0 75 20 116/58 94 Room Air 10/15/17 03:21 Room Air 10/15/17 03:20 Room Air 10/15/17 00:00 98.1 75 20 109/49 94 Room Air 10/14/17 23:45 Room Air 10/14/17 23:40 Room Air 10/14/17 20:00 98.2 75 20 122/55 92 Room Air 10/14/17 20:00 78 10/14/17 19:50 67 18 98 Room Air 21 10/14/17 19:40 64 18 98 Room Air 21 10/14/17 16:00 74 10/14/17 16:00 97.8 71 20 134/68 97 Room Air 10/14/17 14:57 67 20 99 Room Air 21 10/14/17 14:50 65 20 99 Room Air 21 10/14/17 12:03 65 20 99 Room Air 21 10/14/17 12:00 97.9 66 19 140/62 97 Room Air 10/14/17 12:00 66 10/14/17 11:55 66 20 97 Room Air 21 Intake and Output 10/14/17 10/15/17 19:00 07:00 Intake Total 562 ml Balance 562 ml Intake Oral 562 ml # Voids 1 2 Objective WDWN NAD clear breath sounds bilaterally without rhonchi or wheeze theravent removed [id number] without MRG NABS nontender no HSM no CCE nonfocal Current Medications Medications (Trade) Dose Ordered Sig/Mairela Route PRN Reason Start Time Stop Time Status Last Admin Dose Admin Acetaminophen (Tylenol) 650 mg Q4H PRN ORAL Mild Pain/Temp > 100.5 10/13/17 05:15 11/12/17 05:14 10/14/17 08:53 Al Hydroxide/Mg Hydroxide (Mylanta) 30 ml Q4H PRN ORAL Abdominal cramps 10/13/17 05:15 11/12/17 05:14 Albuterol Sulfate (Proventil) 2.5 mg Q4HRT HHN 10/13/17 11:00 10/18/17 10:59 10/15/17 07:26 Atorvastatin Calcium (Lipitor) 10 mg BEDTIME ORAL 10/13/17 21:00 11/12/17 20:59 10/14/17 20:30 Clopidogrel Bisulfate (Plavix) 75 mg DAILY ORAL 10/13/17 09:00 11/12/17 08:59 10/14/17 08:54 Dextrose (Dextrose 50%) STAT PRN IV Hypoglycemia 10/13/17 10:15 11/12/17 10:14 Escitalopram Oxalate (Lexapro) 5 mg DAILY ORAL 10/13/17 09:00 11/12/17 08:59 10/14/17 08:53 Heparin Sodium (Porcine) (Heparin 5000 units/ml) 5,000 units Q12HR SUBQ 10/13/17 09:00 11/12/17 08:59 10/14/17 20:32 Insulin Aspart (NovoLOG) BEFORE MEALS AND HS SUBQ 10/13/17 11:30 11/12/17 11:29 10/13/17 20:42 Magnesium Oxide (Mag-Ox 400mg) 400 mg BID ORAL 10/13/17 09:00 11/12/17 08:59 10/14/17 17:38 Metformin HCl (Glucophage) 500 mg TIAC ORAL 10/13/17 06:30 11/12/17 06:29 10/15/17 05:34 Non-Formulary Medication (Non-Formulary Med) 1 ea DAILY ORAL 10/13/17 09:00 11/12/17 08:59 UNV Non-Formulary Medication (Non-Formulary Med) 25 ea DAILY ORAL 10/13/17 09:00 11/12/17 08:59 UNV Ondansetron HCl (Zofran) 4 mg Q6H PRN IVP Nausea & Vomiting 10/13/17 09:15 11/12/17 09:14 10/13/17 20:45 Pantoprazole (Protonix) 40 mg DAILY ORAL 10/13/17 09:00 11/12/17 08:59 10/14/17 08:54 Zolpidem Tartrate (Ambien) 5 mg HSPRN PRN ORAL Insomnia 10/13/17 05:15 10/20/17 05:14 JACINTA PALACIOS Oct 15, 2017 08:23
[2017-10-15] MEDS: Escitalopram Oxalate 5mg tab ORAL SCH (09:24)
[2017-10-15] MEDS: Magnesium Oxide 400mg tab ORAL SCH (09:24)
[2017-10-15] MEDS: Heparin 5000 units/ml inj SUBQ SCH (09:25)
[2017-10-15] MEDS ORDERED: Milk of Magnesia 30ml Ud ORAL PRN (09:30)
--- NOTE | 2017-10-15 10:07 | General Progress Note ---
Assessment/Plan Problem List: (1) Lesion of lung ICD Codes: R91.1 - Solitary pulmonary nodule SNOMED: 410139138 (2) Chronic pain ICD Codes: G89.29 - Other chronic pain SNOMED: 59322193 (3) Degenerative arthritis of lumbar spine ICD Codes: M47.816 - Spondylosis without myelopathy or radiculopathy, lumbar region SNOMED: 227826639 (4) Left shoulder strain ICD Codes: S46.912A - Strain of unspecified muscle, fascia and tendon at shoulder and upper arm level, left arm, initial encounter SNOMED: 370703215 (5) Pneumothorax on left ICD Codes: J93.9 - Pneumothorax, unspecified SNOMED: 957239800 Status: stable, progressing Assessment/Plan follow up cxr dc planning if cxr ok Subjective ROS Limited/Unobtainable: No Constitutional: Reports: malaise, weakness HEENT: Reports: no symptoms Cardiovascular: Reports: no symptoms Respiratory: Reports: no symptoms Gastrointestinal/Abdominal: Reports: no symptoms Genitourinary: Reports: no symptoms Neurologic/Psychiatric: Reports: no symptoms Endocrine: Reports: no symptoms Hematologic/Lymphatic: Reports: no symptoms Allergies: Coded Allergies: CODEINE (Verified Allergy, Mild, "MAKES PT CRAZY", 09/20/09) All Systems: reviewed and negative except above Subjective CT out. no sob. walking to the bathroom. Objective Last 24 Hour Vital Signs Date Time Temp Pulse Resp B/P (MAP) Pulse Ox O2 Delivery O2 Flow Rate FiO2 10/15/17 07:31 65 16 98 Room Air 21 10/15/17 07:26 66 18 96 Room Air 10/15/17 04:00 71 10/15/17 04:00 97.0 75 20 116/58 94 Room Air 10/15/17 03:21 Room Air 10/15/17 03:20 Room Air 10/15/17 00:00 98.1 75 20 109/49 94 Room Air 10/14/17 23:45 Room Air 10/14/17 23:40 Room Air 10/14/17 20:00 98.2 75 20 122/55 92 Room Air 10/14/17 20:00 78 10/14/17 19:50 67 18 98 Room Air 21 10/14/17 19:40 64 18 98 Room Air 21 10/14/17 16:00 74 2/1/18 16:00 97.8 71 20 134/68 97 Room Air 10/14/17 14:57 67 20 99 Room Air 21 10/14/17 14:50 65 20 99 Room Air 21 10/14/17 12:03 65 20 99 Room Air 21 10/14/17 12:00 97.9 66 19 140/62 97 Room Air 10/14/17 12:00 66 10/14/17 11:55 66 20 97 Room Air 21 Intake and Output 10/14/17 10/15/17 19:00 07:00 Intake Total 562 ml Balance 562 ml Intake Oral 562 ml # Voids 1 2 Height (Feet): 5 Height (Inches): 1.00 Weight (Pounds): 124 Objective General Appearance: WD/WN, alert Neck: supple Cardiovascular: normal rate Respiratory/Chest: chest wall non-tender, lungs clear, normal breath sounds Abdomen: normal bowel sounds, non tender, soft, no organomegaly Edema: no edema noted Arm (L), no edema noted Arm (R), no edema noted Leg (L), no edema noted Leg (R), no edema noted Pedal (L), no edema noted Pedal (R), no edema noted Generalized Neurologic: master lay out specialist II-XII grossly normal, no motor/sensory deficits, oriented x 3 , responsive JESSICA COATS Oct 15, 2017 10:07
[2017-10-15 12:00] VITALS: BP 100/54
--- NOTE | 2017-10-15 12:55 | Consultation ---
DATE OF CONSULTATION: 10/13/2017 PULMONARY CONSULTATION CONSULTING PHYSICIAN: Alessandro Boogie M.D. REASON FOR CONSULTATION: Pneumothorax and pulmonary infiltrates. HISTORY OF PRESENT ILLNESS: The patient is a 77-year-old female well known to me. The patient underwent a navigational bronchoscopy approximately one day prior. The patient noted to have significant chest pain and went to the imaging center and did have a chest x-ray. The patient was noted to have a complete pneumothorax on the left side and presented to the emergency room on an urgent basis. The patient did have a Theravent placement by the ER physician, had a short 10-second Code, but easily resuscitated. No significant complaints. The patient is currently stable and comfortable. No other associated factors. No hemoptysis. No trauma. The patient's care was discussed and reviewed. PAST MEDICAL HISTORY: Notable for abnormal CT chest, severe bronchial asthma. The patient is also with history of diabetes and history of depression. The patient also with a history of insomnia, history of atherosclerotic heart disease, and history of hypercholesterolemia. MEDICATIONS: Reviewed. ALLERGIES: Reviewed. SOCIAL HISTORY: The patient is a nonsmoker and nondrinker. The patient is retired, does have a son. She is Full Code. FAMILY HISTORY: Otherwise noncontributory except for the above. REVIEW OF SYSTEMS: Otherwise negative with the exception of the above. PHYSICAL EXAMINATION: GENERAL: A well-developed female, otherwise comfortable at present. She is in no significant distress. The patient is alert and oriented. VITAL SIGNS: Blood pressure 146/62, pulse 61, respirations 16, saturations are 100%, and temperature 97.6. HEENT: Fairly negative. Extraocular movements are grossly intact. Oropharynx is moist. LUNGS: With good air entry bilaterally. Some rhonchi and some wheezes. The patient has a Theravent placed through the left chest wall. CARDIOVASCULAR: Normal S1 and S2. Regular rate and rhythm without murmurs, rubs, or gallops. ABDOMEN: Soft, nontender, and nondistended. EXTREMITIES: No cyanosis or clubbing. No edema. NEUROLOGIC: Grossly nonfocal. LABORATORY DATA: Otherwise reviewed. IMPRESSION: 1. Pneumothorax, iatrogenic. 2. Diabetes. 3. Asthma, brittle. 4. Atherosclerotic heart disease. 5. Hypercholesterolemia. RECOMMENDATIONS: 1. Provide nebulized therapy. 2. Surgical evaluation for removal of Theravent. 3. Follow up x-ray and examination. 4. Follow up respiratory status and discharge when stable. 5. Follow up biopsy results once available and we will follow the patient in the outpatient setting thereafter. Alessandro Boogie M.D. DR: Roderick JOB#: [id number] CC: FANG
--- NOTE | 2017-10-15 14:17 | Diagnostic Imaging Report ---
Indication: Dyspnea Comparison: To 118 A single view chest radiograph was obtained. Findings: Bones are osteopenic. Heart size is normal. The aorta is mildly calcified. Lungs are clear. IMPRESSION: No acute disease
--- NOTE | 2017-10-15 14:17 | Diagnostic Imaging Report ---
Indication: Dyspnea Comparison: Earlier same day A single view chest radiograph was obtained. Findings: No infiltrate seen. Heart size remains stable. Bones are osteopenic. IMPRESSION: No acute disease
--- NOTE | 2017-10-15 14:19 | General Surgery Progress Note ---
General Surgery-Progress Note Subjective Symptoms: improved Additional Comments thoravent removed. doing well. no issues. cxr improved. Objective Last 24 Hour Vital Signs Date Time Temp Pulse Resp B/P (MAP) Pulse Ox O2 Delivery O2 Flow Rate FiO2 10/15/17 11:00 68 16 100 Room Air 21 10/15/17 10:54 69 18 97 Room Air 21 10/15/17 08:00 97.2 85 20 104/57 94 Nasal Cannula 2.0 10/15/17 08:00 86 10/15/17 07:31 65 16 98 Room Air 21 10/15/17 07:26 66 18 96 Room Air 21 10/15/17 04:00 71 10/15/17 04:00 97.0 75 20 116/58 94 Room Air 10/15/17 03:21 Room Air 10/15/17 03:20 Room Air 10/15/17 00:00 98.1 75 20 109/49 94 Room Air 10/14/17 23:45 Room Air 10/14/17 23:40 Room Air 10/14/17 20:00 98.2 75 20 122/55 92 Room Air 10/14/17 20:00 78 10/14/17 19:50 67 18 98 Room Air 21 10/14/17 19:40 64 18 98 Room Air 21 10/14/17 16:00 74 10/14/17 16:00 97.8 71 20 134/68 97 Room Air 10/14/17 14:57 67 20 99 Room Air 21 10/14/17 14:50 65 20 99 Room Air 21 I&O Intake and Output 10/14/17 10/15/17 19:00 07:00 Intake Total 562 ml Balance 562 ml Intake Oral 562 ml # Voids 1 2 Wound: clean, dry Drains: none Cardiovascular: RSR Respiratory: clear Abdomen: soft, flat, non-tender Extremities: no edema, no tenderness Plan Problems: (1) Pneumothorax on left Assessment & Plan: 77F with iatrogenic left ptx after bronchoscopy yesterday. s/p left tube thoracostomy with valve vent. cxr improved and symptoms resolved. no leak noted. thoravent removed yesterday. post removal doing well. CXR stable. D/C home today. thank you for this consult. will follow with recs. Hossein Fleming Oct 15, 2017 14:19
[2017-10-15 16:59] VITALS: BP 109/62
[2017-10-15] MEDS ORDERED: D5W 275ml ONE (17:44)
[2017-10-15] MEDS ORDERED: Tubing Blood Filter IV ONE (17:44)
[2017-10-15] MEDS ORDERED: Tubing IV Secondary IV ONE (17:44)
--- NOTE | 2017-10-18 10:42 | Discharge Summary ---
Discharge Summary Hospital Course Date of Admission Oct 12, 2017 at 20:51 Date of Discharge Oct 15, 2017 at 17:45 Admitting Diagnosis pneumothorax HPI Yesi Angeles is a 77 year old female who was admitted on Oct 12, 2017 at 20: 51 for Pneumothorax Hospital Course dc summary #[id number] Discharge Medications Continued Medications: Alpha Lipoic Acid (Alpha Lipoic Acid) 300 Mg Capsule 600 MG PO DAILY, CAP Atorvastatin Calcium* (Lipitor*) 10 Mg Tablet 10 MG ORAL BEDTIME, TAB Benzonatate (Tessalon Perle) 100 Mg Capsule 100 MG ORAL THREE TIMES A DAY for 7 Days, #21 PERLE 0 Refills Capsaicin (Capsaicin) 60 Gm Cream..g. 60 GM TP TID, #60 GM Clopidogrel Bisulfate* (Plavix*) 75 Mg Tablet 75 MG ORAL DAILY, TAB Diphenhydramine Hcl* (Benadryl*) 25 Mg Capsule 25 MG ORAL Q6H PRN for Itching, #30 CAP Escitalopram Oxalate (Lexapro) 5 Mg Tablet 5 MG ORAL DAILY, TAB Insulin Glargine (Lantus) 100 Unit/1 Ml Insuln.pen 20 UNITS SUBQ QHS Magnesium Oxide (Magox 400) 400 Mg Tablet 400 MG ORAL BID, #30 TAB 0 Refills Metformin Hcl* (Glucophage*) 500 Mg Tablet 500 MG PO DAILY, TAB Take one tablet by mouth twice a day Discharge Condition Upon Discharge: stable Discharge Disposition Patient was discharged to Home with Home Health(06) Discharge Diagnoses: Discharge Instructions Discharge Instructions Special Instructions I have been assigned to complete a D/C Summary on this account. I was not involved in the patient management Lashonda Daugherty NP (Vanchtein) Oct 18, 2017 10:42
--- NOTE | 2017-10-19 03:30 | Discharge Summary 2 SIG ---
DATE OF ADMISSION: 10/12/2017 DATE OF DISCHARGE: 10/15/2017 REASON FOR ADMISSION: 77-year-old female, with past medical history of diabetes, asthma, hypercholesteremia, and atherosclerotic heart disease. status post navigational bronchoscopy a day ago, noted significant chest pain. She went to the imaging center and had a chest x-ray, which revealed complete pneumothorax on the left. The patient presented to the emergency room on an urgent basis. Chest x-ray revealed large left pneumothorax with near complete collapse of the left lung. Subsequently, the patient had a Thora-Vent placement by the emergency room physician. The patient was admitted with diagnosis of iatrogenic pneumothorax, diabetes, asthma, hypercholesteremia, and atherosclerotic heart disease. HOSPITAL COURSE: The patient was admitted. Surgery consult was requested. Surgeon seen and evaluated the patient and reviewed chest x-ray. Chest x-ray showed improvement. Symptoms resolved. No leak noted. He recommended to leave tube for two to three days to ensure resolution of the pneumothorax and allow healing. The patient was started on diet, ambulated. Home medications were resumed. Blood sugar was managed with current regimen. Statin was resumed. DVT and GI prophylaxis continued. Supplemental oxygen and pulmonary toilet provided as needed. Respiratory status was closely monitored. Subsequently on 10/14/2017, Thora-Vent was removed without complications at the bedside. Chest x-ray was repeated after removal of Thora-vent, stable. Chest x-ray on 10/15/2017 showed no pneumothorax. The patient was stable for discharge home. The patient will be followed up with the print decorator. Biopsy ( which was done for pulmonary nodule) results will be followed up and treated accordingly. FINAL DIAGNOSES: 1. Left pneumothorax, iatrogenic. 2. Status post recent bronchoscopy 3. Pulmonary nodule. 4. Asthma. 5. Diabetes mellitus. 6. Hypercholesterolemia. 7. Atherosclerotic heart disease. DISCHARGE MEDICATIONS: See medication reconciliation list. DISCHARGE INSTRUCTIONS: The patient was discharged home with home health services. Follow up with the print decorator. Alessandro Boogie M.D. I have been assigned to dictate discharge summary on this account and I was not involved in the patient's management. Lashonda PinedaJosy sears DR: ISREAL JOB#: [id number] CC: FANG
== END 2017-10-15 17:45 | disposition home or self-care (01) | DRG 201 ==
LOC: EMR 19:55 → 2W 20:51 → EDBEDREQSVC 21:36 → EDBEDREQTM 21:36 → EDBEDREQ 23:11 → 2W 23:50 → 2E 10-13 14:47
PROC: 0W9B30Z Drainage of Left Pleural Cavity with Drainage Device, Percutaneous Approach (ICD-10-PCS; principal; 2017-10-12)
DX: J95.811 Postprocedural pneumothorax (principal); E11.9 Type 2 diabetes mellitus without complications; F32.9 Major depressive disorder, single episode, unspecified; J45.909 Unspecified asthma, uncomplicated; Y84.8 Other medical procedures as the cause of abnormal reaction of the patient, or of later complication, without mention of misadventure at the time of the procedure; R91.1 Solitary pulmonary nodule; E78.00 Pure hypercholesterolemia, unspecified; I25.10 Atherosclerotic heart disease of native coronary artery without angina pectoris; Z88.6 Allergy status to analgesic agent; Z79.4 Long term (current) use of insulin; G47.00 Insomnia, unspecified; M47.896 Other spondylosis, lumbar region
CPT/HCPCS: 36415; 71045; 71046; 80053; 82550; 82553; 82962; 84484; 85025; 85610; 85730; 93005; 94640; 94664; 99285; J1815; J2405

== ENCOUNTER → 2017-11-05 | Outpatient (CLI) | payer MEDICARE, MEDICAID ==
[~2017-11-05] MED LIST changes: +ALPHA LIPOIC A300 MG PO; +ATORVASTATIN CA10 MG ORAL; +LEXAPRO5 MG ORAL; +MAGOX 400400 MG ORAL; +METFORMIN HCL500 M1 ORAL; +PLAVIX75 MG ORAL
--- NOTE | 2017-11-05 15:42 | Diagnostic Imaging Report ---
Indication: Reason For Exam: COUGH Technique: 2 views of the chest Comparison: 10/15/2017 Findings: Multiple nodules again demonstrated at the left lung base. There is equivocal in irregular nodular opacity at the right lung base, as well as 2 small calcified granuloma in the right upper lobe are also evident previously. No acute infiltrates. No congestion. No effusions. Heart size is normal. There are mitral annular calcifications and aortic wall calcifications. The bones are unremarkable Impression: Multiple left basilar lung nodules again demonstrated. Multiplicity is concerning for multiple metastatic deposits. Correlate with clinical history, consider CT for further evaluation if clinically indicated No acute abnormality Evidence old granulomatous disease
--- NOTE | 2017-11-05 15:43 | Diagnostic Imaging Report ---
Indication: Trauma, left shoulder pain Technique: One view of the chest Comparison: 09/29/2017 Findings: Focal calcification adjacent to the left humeral head likely represents a focus of calcific tendinosis. Again demonstrated are degenerative changes of the acromioclavicular joint. The bones are osteoporotic. No acute fractures. No dislocations. Joint spaces are preserved. Impression: No acute process. Findings as noted
== END | disposition home or self-care (01) ==
LOC: RAD 11:57
DX: R05 Cough (principal); M25.512 Pain in left shoulder; M81.0 Age-related osteoporosis without current pathological fracture
CPT/HCPCS: 71046

== ENCOUNTER → 2018-03-15 | Outpatient (CLI) | payer MEDICARE, MEDICAID ==
--- NOTE | 2018-03-15 11:51 | Diagnostic Imaging Report ---
Indication: left ankle pain Comparison: None Findings: 3 views of the left ankle obtained. No acute fracture, malalignment, periostitis, or osteochondral defects are identified. Bony mineralization is decreased. There is a plantar calcaneal spur present. Vascular calcifications are present. IMPRESSION: No acute injury
--- NOTE | 2018-03-15 11:52 | Diagnostic Imaging Report ---
Indications: hip pain Findings: Two views of the left hip were obtained. Bones are diffusely osteopenic. There are marginal spurs involving the hip joints bilaterally. No acute fracture or malalignment identified. Degenerative changes at L5-S1 demonstrated. Extensive arterial calcification noted consistent with atherosclerotic disease. IMPRESSION: No acute fracture identified.
--- NOTE | 2018-03-15 12:09 | Diagnostic Imaging Report ---
Indication: Knee Pain 3 views of the left knee were obtained. Findings: No acute fracture, malalignment, or joint effusion are identified. Joint space is relatively well-maintained. Impression: Negative for acute injury
== END | disposition home or self-care (01) ==
LOC: LAB 10:52
DX: M25.572 Pain in left ankle and joints of left foot (principal); M25.552 Pain in left hip; M25.562 Pain in left knee
CPT/HCPCS: 72170; 73502

== ENCOUNTER 2018-03-24 11:25 | Outpatient (CLI) | payer MEDICARE, MEDICAID ==
--- NOTE | 2018-03-24 14:02 | Diagnostic Imaging Report ---
Indication: Trauma and rib pain. Comparison: None Findings: 4 views of the left chest wall was obtained for evaluation of the ribs. There is no acute fracture identified. There is no soft tissue swelling demonstrated. The lung is essentially clear. Postsurgical changes noted in the lung with sutures noted. There is no pneumothorax. The costophrenic angle is sharp. Osteopenia is present. Impression: No acute injury
--- NOTE | 2018-03-24 14:06 | Diagnostic Imaging Report ---
Indication: Dyspnea Comparison: 11/05/2017 2 views of the chest obtained. Interstitial densities are noted within the lungs but unchanged. Heart size is stable and normal. Bones are moderately osteopenic. IMPRESSION: Chronic disease. No acute findings or significant change
== END 2018-03-24 13:25 | disposition home or self-care (01) ==
LOC: LAB 11:25
DX: J45.909 Unspecified asthma, uncomplicated (principal); R07.81 Pleurodynia; M85.80 Other specified disorders of bone density and structure, unspecified site
CPT/HCPCS: 71046

== ENCOUNTER 2018-04-04 11:53 | Outpatient (CLI) | payer MEDICARE, MEDICAID ==
--- NOTE | 2018-04-04 12:54 | Diagnostic Imaging Report ---
Indication: Cough Technique: XRAY Chest 2v Comparison: 03/24/2018 Findings: Heart size and mediastinal contours are stable. Atherosclerotic calcifications again noted in the aorta. Woodruff mitral annular calcifications noted. Postoperative appearance with surgical suture line in the left lung. There is unchanged interstitial densities. There is no new focal consolidation. There is some nodular densities in the right lung which may be related to vessels imaged on end or calcified granulomas. These are also unchanged. There are degenerative changes of the spine. No acute osseous abnormality seen. IMPRESSION: No significant interval change compared to 03/24/2018. No new focal consolidation, pleural effusion or pneumothorax. Chronic findings as above.
== END 2018-04-04 13:53 | disposition home or self-care (01) ==
LOC: RAD 11:53
DX: R05 Cough (principal); R06.02 Shortness of breath; I70.0 Atherosclerosis of aorta
CPT/HCPCS: 71046

== ENCOUNTER 2018-07-18 06:36 | Day surgery (SDC) | payer MEDICARE, MEDICAID ==
[~2018-07-18] VITALS: Ht 154.9 cm; Wt 68.0 kg
[2018-07-18] VITALS (8 sets, daily range): BP systolic 113–178; BP diastolic 57–80
[~2018-07-18 06:36] MED LIST changes: +LR 1000ml 1,000 ML IVLG SCH
[2018-07-18] MEDS ORDERED: Midazolam 2mg/2ml Inj ONE (06:37)
[2018-07-18] MEDS ORDERED: Propofol 200mg/20ml IV ONE (06:37)
[2018-07-18] MEDS ORDERED: LR 1000ml ONE (06:37)
[2018-07-18] MEDS ORDERED: fentaNYL 100 mcg/2 mL IV ONE (06:37)
[2018-07-18] MEDS ORDERED: LR 1000ml 1,000 ML IVLG SCH ×2 (07:00→07:05)
--- NOTE | 2018-07-18 07:05 | Anethesia Preoperative Eval ---
Anesthesia Pre-op PMH/ROS General Date of Evaluation: Jul 18, 2018 Time of Evaluation: 07:02 Anesthesiologist: Jeffrey ASA Score: ASA 3 Mallampati Score Class I : Soft palate, uvula, fauces, pillars visible Class II: Soft palate, uvula, fauces visible Class III: Soft palate, base of uvula visible Class IV: Only hard plate visible Mallampati Classification: Class II Surgeon: Danilo Diagnosis: Abdominal pain Surgical Procedure: EGD Colonoscopy Anesthesia History: none Family History: no anesthesia problems Allergies: Coded Allergies: CODEINE (Verified Allergy, Mild, "MAKES PT CRAZY", 09/20/09) Medications: see eMAR Patient NPO?: Yes Past Medical History Cardiovascular: Reports: HTN; Denies: CAD, [place], valve dz, arrhythmia, other Pulmonary: Reports: asthma, other - L sided pneumothorax s/p Sx; Denies: COPD, OSCAR Gastrointestinal/Genitourinary: Reports: GERD; Denies: CRI, ESRD, other Neurologic/Psychiatric: Denies: dementia, CVA, depression/anxiety, TIA, other Endocrine: Reports: DM; Denies: hypothyroidism, steroids, other HEENT: Denies: cataract (L), cataract (R), glaucoma, [place] (L), [place] (R), other Hematology/Immune: Denies: anemia, DVT, bleeding disorder, other Musculoskeletal/Integumentary: Reports: DJD; Denies: OA, RA, DDD, edema, other PMH Narrative: as above PSxH Narrative: See H&P Anesthesia Pre-op Phys. Exam Physician Exam Constitutional: NAD Neurologic: CN 2-12 intact Cardiovascular: RRR, no M/R/G Respiratory: CTA Gastrointestinal: S/NT/ND Airway Exam Mallampati Score: Class II MO: limited Neck: stiff ROM: limited Teeth: missing Dentures: no upper, no lower Anesthesia Pre-op A/P Labs see chart Studies Pre-op Studies: EKG - SR Risk Assessment & Plan Assessment: ASA 3 Plan: MAC Status Change Before Surgery: No Pre-Antibiotics Drug: none Anuj Murphy MD Jul 18, 2018 07:05
[2018-07-18] MEDS ORDERED: GABAPENTIN100 MG ORAL (07:11)
[2018-07-18] MEDS ORDERED: CIPROFLOXACIN500 MG PO (07:11)
[2018-07-18] MEDS ORDERED: JARDIANCE PO (07:11)
[2018-07-18] MEDS ORDERED: MYRBETRIQ50 MG PO (07:11)
[2018-07-18] MEDS ORDERED: DiphenhydrAMINE 50mg/ml Inj IVP PRN (07:15)
[2018-07-18] MEDS ORDERED: fentaNYL 100 mcg/2 mL IV PRN (07:15)
--- NOTE | 2018-07-18 07:27 | Short Stay Surgery H&P ---
History of Present Illness History of Present Illness Chief Complaint see attached H&P for details HPI Yesi Angeles is a 78 year old female who was admitted on for Abdominal Pain Patient History Allergies: Coded Allergies: CODEINE (Verified Allergy, Mild, "MAKES PT CRAZY", 09/20/09) Medication History Scheduled Alpha Lipoic Acid (Alpha Lipoic Acid), 600 MG PO DAILY, (Reported) Atorvastatin Calcium* (Lipitor*), 10 MG ORAL BEDTIME, (Reported) Benzonatate (Tessalon Perle), 100 MG ORAL THREE TIMES A DAY Capsaicin (Capsaicin), 60 GM TP TID Ciprofloxacin/Ciprofloxa Hcl (Ciprofloxacin Er 500 Mg Tablet), 500 MG PO DAILY, (Reported) Clopidogrel Bisulfate* (Plavix*), 75 MG ORAL DAILY, (Reported) Escitalopram Oxalate (Lexapro), 5 MG ORAL DAILY, (Reported) Gabapentin* (Gabapentin*), 100 MG ORAL DA, (Reported) Ibuprofen* (Motrin*), 600 MG ORAL THREE TIMES A DAY Insulin Glargine (Lantus), 20 UNITS SUBQ QHS, (Reported) Magnesium Oxide (Magox 400), 400 MG ORAL BID, (Reported) Metformin Hcl* (Glucophage*), 500 MG PO TID, (Reported) Mirabegron (Myrbetriq), 50 MG PO DA, (Reported) [Jardiance], 25 MG PO DA, (Reported) Scheduled PRN Diphenhydramine Hcl* (Benadryl*), 25 MG ORAL Q6H PRN for Itching Ibuprofen* (Motrin*), 600 MG ORAL Q12HR PRN for For Pain Discontinued Medications Prednisone* (Prednisone*), 40 MG ORAL DAILY Discontinued Reason: Pt stopped taking med Tramadol Hcl* (Ultram*), 50 MG ORAL Q6H PRN for For Pain Discontinued Reason: Pt stopped taking med Physical Exam Vital Signs Last Vital Signs Date Time Temp Pulse Resp B/P (MAP) Pulse Ox O2 Delivery O2 Flow Rate FiO2 07/18/18 07:19 Room Air 07/18/18 07:00 97.4 77 20 178/80 97 Plan Attestation Are the patient's medical conditions optimized for surgery? Freya Colon MD Jul 18, 2018 07:27
--- NOTE | 2018-07-18 07:28 | Pre-Procedure Note/Attestation ---
Pre-Procedure Note/Attestation Complete Prior to Procedure Planned Procedure: not applicable Procedure Narrative: EGD/Colon Indications for Procedure Pre-Operative Diagnosis: N/V, h/o polyps Attestation I attest that I discussed the nature of the procedure; its benefits; risks and complications; and alternatives (and the risks and benefits of such alternatives ), prior to the procedure, with the patient (or the patient's legal clearance representative). I attest that, if there was a reasonable possibility of needing a blood transfusion, the patient (or the patient's legal clearance representative) was given the [facility] standardized written summary, pursuant to the Prabhakar Kim Blood Safety Act ([place] Health and Safety Code # 1645, as amended). I attest that I re-evaluated the patient just prior to the surgery and that there has been no change in the patient's H&P, except as documented below: Freya Colon MD Jul 18, 2018 07:27
--- NOTE | 2018-07-18 08:08 | Immediate Post-Op Evaluation ---
Immediate Post-Op Evalulation Immediate Post-Op Evalulation Procedure: EGD Colonoscopy Date of Evaluation: Jul 18, 2018 Time of Evaluation: 08:07 IV Fluids: 600 Blood Products: none Estimated Blood Loss: none Urinary Output: none Blood Pressure Systolic: 138 Blood Pressure Diastolic: 68 Pulse Rate: 56 Respiratory Rate: 20 O2 Sat by Pulse Oximetry: 99 Temperature (Fahrenheit): 97.6 Pain Score (1-10): 1 Nausea: No Vomiting: No Complications none Patient Status: reacts, patent, none Hydration Status: adequate Anuj Murphy MD Jul 18, 2018 08:08
--- NOTE | 2018-07-18 08:34 | Endoscopy Procedure Note ---
Endoscopy Procedure Note General Indication for Procedure: N/V, h/o polyp Procedures Performed: EGD, colonoscopy Operative Findings/Diagnosis: GERD/erosion, cecum and sig polyp dim Specimen: yes Pt Tolerated Procedure Well: Yes Estimated Blood Loss: none Anesthesia Anesthesiologist: see notes Anesthesia: MAC Medications Medication Given: see anesthesia record Inserted Devices Implant(s) used?: No GI Core Measures 50 yrs or older w/o bx or poly: No 10yrs. F/U not recommended: No If not recommended, why?: Above average risk 10 yrs. F/U needed: No 18 years or older w/prev. colo: Yes <3yrs. since last colonoscopy: No Med reason:<3 yrs.: System Reason:<3 yrs.: Last colonoscopy >= to 3yrs: Yes Freya Colon MD Jul 18, 2018 08:34
--- NOTE | 2018-07-18 08:35 | Brief Operative Note ---
Immediate Post Operative Note Operative Note Chief Complaint: N/V, h/o po;y[ Pre-op Diagnosis: N/V, h/o polyps Procedure: e/c, c/b Post-op Diagnosis: GERD, polyp x 2 Surgeon: mario Anesthesiologist: see report Anesthesia: MAC Specimen: yes Complications: none Condition: stable Fluids: recorded Estimated Blood Loss: none Drains: none Implant(s) used?: No Freya Colon MD Jul 18, 2018 08:35
--- NOTE | 2018-07-18 08:41 | 48 Hour Post Anesthesia Eval ---
Post Anesthesia Evaluation Procedure: EGD Colonoscopy Date of Evaluation: Jul 18, 2018 Time of Evaluation: 08:39 Blood Pressure Systolic: 116 0: 58 Pulse Rate: 72 Respiratory Rate: 20 Temperature (Fahrenheit): 97.6 O2 Sat by Pulse Oximetry: 98 Airway: patent Nausea: No Vomiting: No Pain Intensity: 1 Hydration Status: adequate Cardiopulmonary Status: stable Mental Status/LOC: patient returned to baseline Follow-up Care/Observations: n/a Post-Anesthesia Complications: none Follow-up care needed: ready to discharge Anuj Murphy MD Jul 18, 2018 08:41
--- NOTE | 2018-07-19 12:00 | Operative Note - Dictated ---
DATE OF OPERATION: 07/18/2018 PROCEDURE: Upper gastrointestinal endoscopy with biopsy as well as colonoscopy with biopsy. SURGEON: Eliane Colon M.D. ANESTHESIA: Please see the separate anesthesiologist notes for details. PRE-ENDOSCOPIC DIAGNOSIS: Symptoms of nausea, vomiting, as well as history of colonic polyps. POST-ENDOSCOPIC DIAGNOSES: 1. Lower esophageal erosion consistent with gastroesophageal reflux. 2. Status post random biopsy of the duodenum, antrum, and lower esophagus. 3. Normal terminal ileum to 5 cm. 4. Diminutive colon polyp in the cecum and also in the sigmoid status post biopsy removal. DESCRIPTION OF PROCEDURE: The procedure, its risks, indications, alternatives, and possible complications were explained to the patient and informed consent was obtained. The diagnostic upper endoscope was then introduced into the oropharynx and advanced to the duodenum without difficulty. The endoscope was then gradually withdrawn and the mucosa was examined carefully. The colonoscope was then introduced into the rectum and advanced 5 cm into the terminal ileum without difficulty. The colonoscope was then gradually withdrawn and the mucosa examined carefully. Findings are as listed above. The biopsies were sent to pathology for review and the patient was sent to recovery in good condition. COMPLICATIONS: None. RECOMMENDATIONS: 1. Begin Zantac 300 mg p.o. at bedtime. 2. Reflux precautions. 3. Follow up biopsy results. 4. Outpatient followup. Thank you for asking me to participate in the care of this patient. Eliane Colon M.D. DR: GENE JOB#: [id number] CC: Alessandro Boogie M.D.; Fax#: [phone] LORENA WILLIAMSON M.D. ; FAX#: [phone] ELIANE COLON M.D.; FAX#: [phone] [facility]ITAL[facility]
== END 2018-07-18 09:30 | disposition home or self-care (01) ==
LOC: GAS 06:36
DX: K29.50 Unspecified chronic gastritis without bleeding (principal); K22.10 Ulcer of esophagus without bleeding; K21.9 Gastro-esophageal reflux disease without esophagitis; D12.0 Benign neoplasm of cecum; D12.5 Benign neoplasm of sigmoid colon; Z86.010 Personal history of colon polyps; I10 Essential (primary) hypertension; J45.909 Unspecified asthma, uncomplicated; E11.9 Type 2 diabetes mellitus without complications; Z79.4 Long term (current) use of insulin; M19.90 Unspecified osteoarthritis, unspecified site; Z88.5 Allergy status to narcotic agent
CPT/HCPCS: 43239; 45380; 82962; J2250; J2704; J3010; 94003; 94150

== ENCOUNTER 2020-07-17 13:50 | Emergency (ER) | payer MEDICARE, MEDICAID ==
[~2020-07-17] VITALS: Ht 154.9 cm; Wt 56.7 kg
[~2020-07-17 13:50] MED LIST changes: +CIPROFLOXACIN500 MG PO; +FLUCONAZOLE100 MG ORAL; +GABAPENTIN100 MG ORAL; +JARDIANCE PO; +LOTRISONE CREAM15 GM TP; -LR 1000ml 1,000 ML IVLG SCH; +MYRBETRIQ50 MG PO; +NITROFURANTOIN100 M2 ORAL
[2020-07-17 14:07] VITALS: BP 95/54
[2020-07-17 14:39] LABS: BASOPHILS % (AUTO) 0.8 % (0.0-2.0); EOSINOPHILS % (AUTO) 0.5 % (0.0-3.0); HEMATOCRIT 46.3 % (37.0-47.0); HEMOGLOBIN 14.2 G/DL (12.0-16.0); LYMPHOCYTES % (AUTO) 26.6 % (20.0-45.0); MEAN CORPUSCULAR VOLUME 88 FL (80-99); MONOCYTES % (AUTO) 8.3 % (1.0-10.0); NEUTROPHILS % (AUTO) 63.8 % (45.0-75.0); PLATELET COUNT 303 K/UL (150-450); RED BLOOD COUNT 5.27 M/UL (4.20-5.40); RED CELL DISTRIBUTION WIDTH 14.1 % (11.6-14.8); WHITE BLOOD COUNT 10.3 K/UL (4.8-10.8)
[2020-07-17 14:41] LABS: APPEARANCE,URINE SLIGHTLY CLOUDY; BILIRUBIN, URINE NEGATIVE (NEGATIVE); GLUCOSE, URINE (UA) 4+ (NEGATIVE); KETONES,URINE NEGATIVE (NEGATIVE); LEUKOCYTE ESTERASE ,URINE 2+ (NEGATIVE); NITRITE,URINE NEGATIVE (NEGATIVE); PH,URINE 6 (4.5-8.0); PROTEIN,URINE NEGATIVE (NEGATIVE); UROBILINOGEN,URINE 1 MG/DL (0.0-1.0)
[2020-07-17 14:46] LABS: COLOR,URINE PALE YELLOW
[2020-07-17 14:52] LABS: ANION GAP 10 mmol/L (5-15); BLOOD UREA NITROGEN 14 mg/dL (7-18); CALCIUM 8.9 MG/DL (8.5-10.1); CARBON DIOXIDE 30 MMOL/L (21-32); CHLORIDE 97 MMOL/L (98-107); SODIUM 136 MMOL/L (136-145)
[2020-07-17 15:03] LABS: ALANINE AMINOTRANSFERASE < 6 U/L (12-78); ALBUMIN 3.5 G/DL (3.4-5.0); ALBUMIN/GLOBULIN RATIO 0.6 (1.0-2.7); ALKALINE PHOSPHATASE 45 U/L (46-116); ASPARTATE AMINO TRANSFERASE 15 U/L (15-37); BILIRUBIN,TOTAL 0.3 MG/DL (0.2-1.0)
[2020-07-17] MEDS ORDERED: CEPHALEXIN500 MG ORAL (15:17)
--- NOTE | 2020-07-17 15:17 | Emergency Room Report ---
History of Present Illness General Chief Complaint: General Complaint Source: Patient, Caregiver Present Illness HPI 80-year-old female with history of diabetes, hyperlipidemia, depression currently on medication brought in by caregiver due to low blood pressure at home. Patient pain upon arrival. Reports that the home nurse measured her blood pressure earlier today and it was 80/60. Nurse contacted patient primary care provider and was told to come to the emergency department. Time patient denies any headache, dizziness, pain, shortness of breath, abdominal pain, nausea or vomiting. Patient is also taking Eliquis however does not recall what she was prescribed Eliquis. I spoke to patient's son over the phone who confirmed the medication the patient is currently taking. Patient also has a skin graft bottom of right foot status post melanoma. Denies all URI symptoms. Allergies: Coded Allergies: CODEINE (Verified Allergy, Mild, "MAKES PT CRAZY", 09/20/09) COVID-19 Screening Contact w/high risk pt: No Experienced COVID-19 symptoms?: No COVID-19 Testing performed ESCROW MANAGER: No Patient History Past Medical History: see triage record Past Surgical History: none Pertinent Family History: none Last Menstrual Period: na Now: No Immunizations: UTD Reviewed Nursing Documentation: PMH: Agreed; PSxH: Agreed Nursing Documentation-PMH Past Medical History: No History, Except For Hx Cardiac Problems: No Hx Hypertension: No Hx Pacemaker: No Hx Asthma: No - BRONCHITIS Hx COPD: No Hx Diabetes: Yes Hx Cancer: No Hx Gastrointestinal Problems: Yes - CONSTIPATED Hx Dialysis: No Hx Neurological Problems: No Hx Cerebrovascular Accident: No Hx Seizures: No Hx Weakness: Yes Review of Systems All Other Systems: negative except mentioned in HPI Physical Exam Vital Signs Date Time Temp Pulse Resp B/P (MAP) Pulse Ox O2 Delivery O2 Flow Rate FiO2 07/17/20 13:52 95.0 83 18 95/54 (68) 96 Room Air Sp02 EP Interpretation: reviewed, normal General Appearance: no apparent distress, alert, GCS 15, non-toxic Head: normocephalic, atraumatic Eyes: bilateral eye normal inspection, bilateral eye PERRL ENT: hearing grossly normal, normal pharynx, no angioedema, normal voice Neck: full range of motion, supple/symm/no masses Respiratory: chest non-tender, lungs clear, normal breath sounds, speaking full sentences Cardiovascular #1: regular rate, rhythm, no edema Cardiovascular #2: 2+ carotid (R), 2+ carotid (L), 2+ radial (R), 2+ radial (L), 2+ dorsalis pedis (R), 2+ dorsalis pedis (L) Gastrointestinal: normal bowel sounds, non tender, soft, non-distended, no guarding, no rebound Rectal: deferred Musculoskeletal: back normal, no calf tenderness Neurologic: alert, motor strength/tone normal, oriented x3, sensory intact, responsive, speech normal Psychiatric: judgement/insight normal, memory normal, mood/affect normal, no suicidal/homicidal ideation Skin: no rash Lymphatic: no adenopathy Medical Decision Making PA Attestation All diagnoses and treatment plans were reviewed and discussed with my supervising physician Dr. Brink Diagnostic Impression: Primary Impression: Hypotension Additional Impression: UTI (urinary tract infection) ER Course 80-year-old female with history of diabetes, hyperlipidemia, depression currently on medication brought in by caregiver due to low blood pressure at home. Patient pain upon arrival. Reports that the home nurse measured her blood pressure earlier today and it was 80/60. Nurse contacted patient primary care provider and was told to come to the emergency department. Time patient denies any headache, dizziness, pain, shortness of breath, abdominal pain, nausea or vomiting. Patient is also taking Eliquis however does not recall what she was prescribed Eliquis. I spoke to patient's son over the phone who confirmed the medication the patient is currently taking. Patient also has a skin graft bottom of right foot status post melanoma. Denies all URI symptoms. Ddx considered but are not limited to: Hypotension, anemia, PA, hypoglycemia, Vital signs: are WNL, pt. is afebrile H&PE are most consistent with possible hypotension, UTI ORDERS: EKG, Chest XR, cardiac labs, keflex ED INTERVENTIONS: NS bolus. DISCHARGE: At this time pt. is stable for d/c to home. Will provide printed patient care instructions, and any necessary prescriptions. Care plan and follow up instructions have been discussed with the patient prior to discharge. Increase oral hydration, follow primary care provider, if worsening symptoms return to emergency room EKG Diagnostic Results Rate: normal Rhythm: NSR ST Segments: no acute changes Other Impression No acute ST changes ASA given to the pt in ED: No Chest X-Ray Diagnostic Results Chest X-Ray Diagnostic Results : Chest X-Ray Ordered: Yes # of Views/Limited/Complete: 1 View Indication: Other EP Interpretation: Yes PA Xray: Interpretation reviewed, by supervising MD, and agrees with findings. Interpretation: no consolidation, no effusion, no pneumothorax Impression: No acute disease Electronically Signed by: Pradeep Meza PA-C Last Vital Signs Date Time Temp Pulse Resp B/P (MAP) Pulse Ox O2 Delivery O2 Flow Rate FiO2 07/17/20 14:07 83 18 Room Air 07/17/20 14:07 95.0 95/54 96 Disposition: HOME, SELF-CARE Condition: Stable Referrals: NOT CHOSEN IPA/MD,REFERRING (PCP) Patient Instructions: Hypotension, [id number], Urinary Tract Infection, [id number] Additional Instructions: Increase oral hydration, follow primary care provider, if worsening symptoms return to emergency room Pradeep Farrell Jul 17, 2020 15:16
[2020-07-17 15:28] VITALS: BP 95/54
--- NOTE | 2020-07-17 19:40 | Diagnostic Imaging Report ---
Indication: Chest pain Technique: One view of the chest Comparison: 04/04/2018 Findings: Lungs and pleural spaces are clear. The heart size is normal. No significant change Impression: No acute process
--- NOTE | 2020-07-21 15:10 | Cardiology Report ---
APPROVED REPORT EKG Measurement Heart [id number] <Conclusion> Normal sinus rhythm Nonspecific ST abnormality Abnormal ECG
== END 2020-07-17 15:29 | disposition home or self-care (01) ==
LOC: EMR 14:10
DX: I95.9 Hypotension, unspecified (principal); N39.0 Urinary tract infection, site not specified; Z88.6 Allergy status to analgesic agent; F32.9 Major depressive disorder, single episode, unspecified; E78.5 Hyperlipidemia, unspecified; E11.9 Type 2 diabetes mellitus without complications; Z79.01 Long term (current) use of anticoagulants; R07.9 Chest pain, unspecified
CPT/HCPCS: 36415; 71045; 80053; 81003; 83880; 84484; 85025; 85610; 85730; 93005; 96360; 99284; J7030